=== PATIENT | male | born 2000 | race Caucasian/White ===

== ENCOUNTER 2020-10-08 22:12 | Inpatient (IN) | payer BC ==
--- NOTE | 2020-10-08 23:04 | EDM.PDOCBH ---
ED HPI GENERAL MEDICAL PROBLEM - General Chief Complaint: Behavioral/Psych Stated Complaint: OPIOID WITHDRAWAL Time Seen by Provider: 10/08/20 23:04 Source of Information: Reports: Patient History Limitations: Reports: No Limitations - History of Present Illness INITIAL COMMENTS - FREE TEXT/NARRATIVE: 20-year-old male presents to the ED in accompaniment of his father. Apparently he has been living in the [place] area and came home within the last few days. He indicates that he has been using heroin by way of smoking it. He has a opioid addiction and has been taking Suboxone tablets daily for the last 2 months. He states he has been rationing his medication to a half a tablet daily since he knew he was going to have difficulty finding another doctor to prescribe it. Father reports that he did eat dinner today. He appears to have kept it down. He is shaking like a leaf at present and opening and closing his eyes with some nystagmus. He appears restless and agitated. He will not answer me as far as diarrhea or vomiting goes. He will not answer me as far as abdominal cramping pain. Father reports that he is hallucinating and will walk out into a room and be completely unaware of his surroundings. He is fearful that he would actually leave the home and walk out into traffic. He states that he is only taking opioids but I have suspicion that he is taking other hallucinogenic's such as methamphetamines which she denies. He states he last used heroin by way of smoking it 2 days ago. He apparently uses alcohol on a as needed basis and marijuana. Onset: Gradual Onset Date: 10/06/20 Duration: Day(s):, Constant, Getting Worse, Waxing/Waning Location: Reports: Generalized (Feeling of anxiety with restlessness and agitation. Appears to be hallucinating primarily visually clinically.) Quality: Reports: Other (Hallucinations) Severity: Moderate Improves with: Reports: None Worsens with: Reports: None Context: Denies: Activity, Exercise, Lifting, Sick Contact, Trauma, Other Associated Symptoms: Reports: Confusion, Cough, Loss of Appetite, Malaise, Nausea/Vomiting (Nausea with no reported vomiting), Rash (Evidence of self picking on his face.), Weakness. Denies: Chest Pain, cough w sputum, Diaphoresis, Fever/Chills, Headaches, Seizure, Shortness of Breath, Syncope Treatments [employer] PROFESSION[employer]: Reports: Other (see below) (Box on half tablet taken today.) - Related Data Allergies Allergy/AdvReac Type Severity Reaction Status Date / Time No Known Allergies Allergy Verified 10/08/20 22:47 Home Meds: Home Meds ondansetron HCL [Zofran] 4 mg PO TID PRN #15 tablet 11/26/17 [Rx] Past Medical History Psychiatric History: Reports: Addiction (Primarily to opioids) - Infectious Disease History Infectious Disease History: Reports: None Social & Family History - Tobacco Use Tobacco Use Status *Q: Current Every Day Tobacco User Years of Tobacco use: 5 Packs/Tins Daily: 1 - Caffeine Use Caffeine Use: Reports: None - Recreational Drug Use Recreational Drug Use: Yes Recreational Drug Type: Reports: Heroin Recreational Drug Use Frequency: Daily - Living Situation & Occupation Living situation: Reports: Single Occupation: Unemployed (Came home from the [facility] a few days ago to [place] to his parents home. It is unclear if he is homeless or not.) ED ROS GENERAL - Review of Systems Review Of Systems: See Below Constitutional: Reports: Chills, Malaise, Weakness, Fatigue, Weight Loss. Denies: Fever HEENT: Reports: No Symptoms Respiratory: Reports: Cough (Intermittent cough from smoking cigarettes.). Denies: Shortness of Breath, Wheezing, Pleuritic Chest Pain Cardiovascular: Denies: Chest Pain, Blood Pressure Problem, Claudication, Dyspnea on Exertion, Edema, Lightheadedness, Orthopnea Endocrine: Reports: Fatigue GI/Abdominal: Reports: Abdominal Pain, Decreased Appetite, Nausea. Denies: Constipation, Diarrhea, Stool Incontinence, Vomiting : Reports: No Symptoms Musculoskeletal: Reports: No Symptoms Skin: Reports: Rash (Evidence of self picking), Other ( or neurodermatitis.) Neurological: Reports: Confusion, Headache Psychiatric: Reports: Anxiety, Confusion, Hallucinations, Other (Agitation). Denies: Depression, Suicidal Ideation Hematologic/Lymphatic: Reports: No Symptoms Immunologic: Reports: No Symptoms ED EXAM, BEHAVIORAL HEALTH - Physical Exam Exam: See Below Exam Limited By: Altered Mental Status (Patient is confused and obviously hallucinating primarily auditory. He will get about every third question that you ask of him and try and reply.) General Appearance: Anxious, Moderate Distress (Agitated), Cachetic, Other (Temperature is 36.3. Heart rate 97 is sinus respiratory is 13 with O2 sats 100% room air. BP 1 3683) Eye Exam: Bilateral Eye: Normal Inspection, PERRL, Other (Repetitive blinking of his eyelids) Throat/Mouth: Normal Lips, Normal Oropharynx, Other (Is mildly dry and coated). No: Normal Teeth Head: Atraumatic, Normocephalic Neck: Normal Inspection, Supple, Non-Tender, Full Range of Motion. No: Lymphadenopathy (L), Lymphadenopathy (R) Respiratory/Chest: No Respiratory Distress, Lungs Clear, Normal Breath Sounds, No Accessory Muscle Use. No: Rales, Rhonchi, Wheezing Cardiovascular: Normal Peripheral Pulses, Regular Rate, Rhythm, No Edema, No Gallop, No Murmur, No Rub, Other (No injuries to his extremities identified. No track antoine) GI/Abdominal: Normal Bowel Sounds, Soft, Non-Tender, No Organomegaly, No Distention, Other (Avoid abdomen.) Back Exam: Normal Inspection, Full Range of Motion. No: CVA Tenderness (L), CVA Tenderness (R) Extremities: Normal Inspection, Normal Range of Motion, Non-Tender, No Pedal Edema Neurological: Alert, CN II-XII Intact, No Motor/Sensory Deficits, Disoriented to Time, Inattentive, Slow Response to Commands (Remittent response to commands I think in between auditory hallucinations), Other (He was not able to perform any neurological exam as he cannot obey all commands.). No: Normal Cognition, Oriented x 3 (Oriented to time), Dysarthria Psychiatric: Restless, Agitated, Inattentive, Auditory Hallucinations (Fact.) Skin Exam: Warm, Dry, Intact, Normal color, Other Endotracheal Intubation - Endotracheal Intubation Time of Intubation: 00:50 ET Intubation Indication: Airway Protection, Other (Extreme uncontrolled behavior) Preparation: Suction, Balloon Tested, BVM Set Up, Difficult Airway Equip Airway Assessment: Other (Normal airway) Pre-Oxygenation: Assisted with BVM, 100% FiO2 Anesthesia Meds: Etomidate, Propofol (90 mg), Succinylcholine (90 mg) Placement: Orotracheal Cords Visualized: Yes Number of Attempts: 1 Confirmed By: CO2 Indicator, Bilateral Breath Sounds, Chest Xray Tube Secured By: By RT #1 Interpretation EKG Date: 10/08/20 Time: 23:24 Rhythm: NSR Rate (Beats/Min): 80 Speer: Normal P-Wave: Present QRS: Other (RSR prime wave V1 V2 consider normal variant. Left ventricular hypertrophy pattern normal for age.) ST-T: Normal QT: Normal EKG Interpretation Comments: Essential normal ECG for age. COURSE, BEHAVIORAL HEALTH COMP - Course Vital Signs: Last Vital Signs Temp 36.8 C 10/11/20 04:00 Pulse 64 10/10/20 09:46 Resp 14 10/11/20 04:00 BP 121/65 10/11/20 04:00 Pulse Ox 99 10/11/20 04:00 Orders, Labs, Meds: Medication Orders Acetaminophen (Acetaminophen 650 Mg Supp) 650 mg RECTAL Q4H PRN PRN Reason: Pain (mild 1-3) Benzocaine/Menthol (Benzocaine/Cetylpyridinium/Menthol Lozenge) 1 lozenge MUCMEM QID PRN PRN Reason: Sore Throat Last Admin: 10/10/20 11:48 Dose: 1 lozenge Documented by: NIDA Enoxaparin Sodium (Enoxaparin 40 Mg/0.4 Ml Syringe) 40 mg SUBCUT Q24H [facility] Last Admin: 10/10/20 12:48 Dose: 40 mg Documented by: Admin: 10/09/20 14:20 Dose: 40 mg Documented by: CARLOS Lorazepam (Lorazepam 2 Mg/Ml Sdv) 1 - 2 mg IVPUSH Q1H PRN; Protocol PRN Reason: Withdrawal Symptoms Last Admin: 10/10/20 22:28 Dose: 2 mg Documented by: JALIL Lorazepam (Lorazepam 1 Mg Tab) 1 - 2 mg PO Q1H PRN; Protocol PRN Reason: Withdrawal Symptoms Last Admin: 10/11/20 01:07 Dose: 1 mg Documented by: JALIL Nicotine Polacrilex (Nicotine Polacrilex 2 Mg Gum) 2 mg CHEW Q2H PRN PRN Reason: Withdrawal Symptoms Last Admin: 10/11/20 02:38 Dose: 2 mg Documented by: Admin: 10/10/20 16:43 Dose: 2 mg Documented by: NIDA Pantoprazole Sodium (Pantoprazole 40 Mg Vial) 40 mg IVPUSH DAILY [facility] Last Admin: 10/10/20 08:06 Dose: 40 mg Documented by: NIDA Laboratory Tests 10/08/20 10/08/20 10/08/20 Range/Units 23:34 23:34 23:34 WBC 10.68 H (4.23-9.07) K/mm3 RBC 5.39 (4.63-6.08) M/mm3 Hgb 15.9 (13.7-17.5) gm/dl Hct 43.8 (40.1-51.0) % MCV 81.3 D (79.0-92.2) fl MCH 29.5 (25.7-32.2) pg MCHC 36.3 H (32.2-35.5) g/dl RDW Std Deviation 36.7 (35.1-43.9) fL Plt Count 443 H D (163-337) K/mm3 MPV 9.4 (9.4-12.3) fl Neut % (Auto) 81.7 H (34.0-67.9) % Lymph % (Auto) 12.6 L (21.8-53.1) % [place] % (Auto) 5.1 L (5.3-12.2) % Eos % (Auto) 0.3 L (0.8-7.0) Baso % (Auto) 0.2 (0.1-1.2) % Neut # (Auto) 8.73 H (1.78-5.38) K/mm3 Lymph # (Auto) 1.35 (1.32-3.57) K/mm3 [place] # (Auto) 0.54 (0.30-0.82) K/mm3 Eos # (Auto) 0.03 L (0.04-0.54) K/mm3 Baso # (Auto) 0.02 (0.01-0.08) K/mm3 Puncture Site ABG pH (7.35-7.45) ABG pCO2 (35.0-45.0) mmHg ABG pO2 (80.0-100.0) mmHg ABG HCO3 (22.0-26.0) meq/L ABG O2 Saturation (96.0-97.0) % ABG Base Excess (-2-2.0) A-a Gradient mmHg O2 Delivery Device FiO2 (21.00-100.00) % Tidal Volume cc PEEP cmH20 Sodium 144 (136-145) mEq/L Potassium 3.5 (3.5-5.1) mEq/L Chloride 105 (98-107) mEq/L Carbon Dioxide 24 (21-32) mEq/L Anion Gap 18.5 H (5-15) BUN 13 (7-18) mg/dL Creatinine 0.9 (0.7-1.3) mg/dL Est Cr Clr Drug Dosing 106.55 mL/min Estimated GFR (MDRD) > 60 (>60) mL/min BUN/Creatinine Ratio 14.4 (14-18) Glucose 140 H (70-99) mg/dL Calcium 9.3 (8.5-10.1) mg/dL Magnesium 2.3 (1.8-2.4) mg/dL Total Bilirubin 0.5 (0.2-1.0) mg/dL AST 21 (15-37) U/L ALT 19 (16-63) U/L Alkaline Phosphatase 100 (46-116) U/L Troponin I < 0.017 (0.00-0.056) ng/mL C-Reactive Protein <0.2 (<1.0) mg/dL Total Protein 7.6 (6.4-8.2) g/dl Albumin 4.7 (3.4-5.0) g/dl Globulin 2.9 gm/dL Albumin/Globulin Ratio 1.6 (1-2) Urine Color (Yellow) Urine Appearance (Clear) Urine pH (5.0-8.0) Ur Specific [place] (1.005-1.030) Urine Protein (Negative) Urine Glucose (UA) (Negative) Urine Ketones (Negative) Urine Occult Blood (Negative) Urine Nitrite (Negative) Urine Bilirubin (Negative) Urine Urobilinogen (0.2-1.0) Ur Leukocyte Esterase (Negative) Urine RBC (0-5) /hpf Urine WBC (0-5) /hpf Ur Squamous Epith Cells (0-5) /hpf Amorphous Sediment (NOT SEEN) /hpf Urine Bacteria (FEW) /hpf Urine Mucus (FEW) /hpf Salicylates (2.8-20) mg/dL Urine Opiates Screen (LGCBWM=707) Ur Buprenorphine Scrn (CUTOFF=10) Ur Oxycodone Screen (JLY1QS=512) Urine Methadone Screen (WRZ1EL=313) Ur Propoxyphene Screen (LZIMWW=212) Acetaminophen (10-30) ug/mL Ur Barbiturates Screen (TEEKDW=060) Ur Tricyclics Screen (AYNDLJ=429) Ur Phencyclidine Scrn (CUTOFF=25) Ur Amphetamine Screen (LXVUUV=331) U Methamphetamines Scrn (BZODRU=466) U Benzodiazepines Scrn (IDGBTQ=382) U Cocaine Metab Screen (TICYEF=526) U Marijuana (THC) Screen (CUTOFF=50) Ethyl Alcohol (0.00) gm% Hepatitis C Antibody Negative (NEGATIVE) HIV-1 Ab Rapid Screen Negative (NEGATIVE) SARS-CoV-2 RNA (RENETTA) (NEGATIVE) 10/08/20 10/08/20 10/08/20 Range/Units 23:34 23:34 23:48 WBC (4.23-9.07) K/mm3 RBC (4.63-6.08) M/mm3 Hgb (13.7-17.5) gm/dl Hct (40.1-51.0) % MCV (79.0-92.2) fl MCH (25.7-32.2) pg MCHC (32.2-35.5) g/dl RDW Std Deviation (35.1-43.9) fL Plt Count (163-337) K/mm3 MPV (9.4-12.3) fl Neut % (Auto) (34.0-67.9) % Lymph % (Auto) (21.8-53.1) % [place] % (Auto) (5.3-12.2) % Eos % (Auto) (0.8-7.0) Baso % (Auto) (0.1-1.2) % Neut # (Auto) (1.78-5.38) K/mm3 Lymph # (Auto) (1.32-3.57) K/mm3 [place] # (Auto) (0.30-0.82) K/mm3 Eos # (Auto) (0.04-0.54) K/mm3 Baso # (Auto) (0.01-0.08) K/mm3 Puncture Site ABG pH (7.35-7.45) ABG pCO2 (35.0-45.0) mmHg ABG pO2 (80.0-100.0) mmHg ABG HCO3 (22.0-26.0) meq/L ABG O2 Saturation (96.0-97.0) % ABG Base Excess (-2-2.0) A-a Gradient mmHg O2 Delivery Device FiO2 (21.00-100.00) % Tidal Volume cc PEEP cmH20 Sodium (136-145) mEq/L Potassium (3.5-5.1) mEq/L Chloride (98-107) mEq/L Carbon Dioxide (21-32) mEq/L Anion Gap (5-15) BUN (7-18) mg/dL Creatinine (0.7-1.3) mg/dL Est Cr Clr Drug Dosing mL/min Estimated GFR (MDRD) (>60) mL/min BUN/Creatinine Ratio (14-18) Glucose (70-99) mg/dL Calcium (8.5-10.1) mg/dL Magnesium (1.8-2.4) mg/dL Total Bilirubin (0.2-1.0) mg/dL AST (15-37) U/L ALT (16-63) U/L Alkaline Phosphatase (46-116) U/L Troponin I (0.00-0.056) ng/mL C-Reactive Protein (<1.0) mg/dL Total Protein (6.4-8.2) g/dl Albumin (3.4-5.0) g/dl Globulin gm/dL Albumin/Globulin Ratio (1-2) Urine Color Yellow (Yellow) Urine Appearance Clear (Clear) Urine pH 7.5 (5.0-8.0) Ur Specific [place] 1.020 (1.005-1.030) Urine Protein Trace H (Negative) Urine Glucose (UA) Negative (Negative) Urine Ketones 2+ H (Negative) Urine Occult Blood Negative (Negative) Urine Nitrite Negative (Negative) Urine Bilirubin Negative (Negative) Urine Urobilinogen 1.0 (0.2-1.0) Ur Leukocyte Esterase Negative (Negative) Urine RBC Not seen (0-5) /hpf Urine WBC Not seen (0-5) /hpf Ur Squamous Epith Cells 0-5 (0-5) /hpf Amorphous Sediment Moderate H (NOT SEEN) /hpf Urine Bacteria Rare (FEW) /hpf Urine Mucus Rare (FEW) /hpf Salicylates 1.1 L (2.8-20) mg/dL Urine Opiates Screen (SUYAUP=511) Ur Buprenorphine Scrn (CUTOFF=10) Ur Oxycodone Screen (GYU5JR=398) Urine Methadone Screen (WTT3TF=655) Ur Propoxyphene Screen (TUXERZ=755) Acetaminophen 0 L (10-30) ug/mL Ur Barbiturates Screen (IUSNIE=830) Ur Tricyclics Screen (OTIQUK=912) Ur Phencyclidine Scrn (CUTOFF=25) Ur Amphetamine Screen (QNTZTU=279) U Methamphetamines Scrn (VIDRRF=507) U Benzodiazepines Scrn (KGVRMP=696) U Cocaine Metab Screen (UKLDAM=796) U Marijuana (THC) Screen (CUTOFF=50) Ethyl Alcohol 0.00 (0.00) gm% Hepatitis C Antibody (NEGATIVE) HIV-1 Ab Rapid Screen (NEGATIVE) SARS-CoV-2 RNA (RENETTA) (NEGATIVE) 10/08/20 10/09/20 10/09/20 Range/Units 23:48 02:19 08:52 WBC (4.23-9.07) K/mm3 RBC (4.63-6.08) M/mm3 Hgb (13.7-17.5) gm/dl Hct (40.1-51.0) % MCV (79.0-92.2) fl MCH (25.7-32.2) pg MCHC (32.2-35.5) g/dl RDW Std Deviation (35.1-43.9) fL Plt Count (163-337) K/mm3 MPV (9.4-12.3) fl Neut % (Auto) (34.0-67.9) % Lymph % (Auto) (21.8-53.1) % [place] % (Auto) (5.3-12.2) % Eos % (Auto) (0.8-7.0) Baso % (Auto) (0.1-1.2) % Neut # (Auto) (1.78-5.38) K/mm3 Lymph # (Auto) (1.32-3.57) K/mm3 [place] # (Auto) (0.30-0.82) K/mm3 Eos # (Auto) (0.04-0.54) K/mm3 Baso # (Auto) (0.01-0.08) K/mm3 Puncture Site Rt radial ABG pH 7.33 L (7.35-7.45) ABG pCO2 48.4 H (35.0-45.0) mmHg ABG pO2 141.0 H (80.0-100.0) mmHg ABG HCO3 25.0 (22.0-26.0) meq/L ABG O2 Saturation 98.9 H (96.0-97.0) % ABG Base Excess -0.8 (-2-2.0) A-a Gradient 12 mmHg O2 Delivery Device Ventilator FiO2 30.00 (21.00-100.00) % Tidal Volume 400.0 cc PEEP 5.0 cmH20 Sodium (136-145) mEq/L Potassium (3.5-5.1) mEq/L Chloride (98-107) mEq/L Carbon Dioxide (21-32) mEq/L Anion Gap (5-15) BUN (7-18) mg/dL Creatinine (0.7-1.3) mg/dL Est Cr Clr Drug Dosing mL/min Estimated GFR (MDRD) (>60) mL/min BUN/Creatinine Ratio (14-18) Glucose (70-99) mg/dL Calcium (8.5-10.1) mg/dL Magnesium (1.8-2.4) mg/dL Total Bilirubin (0.2-1.0) mg/dL AST (15-37) U/L ALT (16-63) U/L Alkaline Phosphatase (46-116) U/L Troponin I (0.00-0.056) ng/mL C-Reactive Protein (<1.0) mg/dL Total Protein (6.4-8.2) g/dl Albumin (3.4-5.0) g/dl Globulin gm/dL Albumin/Globulin Ratio (1-2) Urine Color (Yellow) Urine Appearance (Clear) Urine pH (5.0-8.0) Ur Specific [place] (1.005-1.030) Urine Protein (Negative) Urine Glucose (UA) (Negative) Urine Ketones (Negative) Urine Occult Blood (Negative) Urine Nitrite (Negative) Urine Bilirubin (Negative) Urine Urobilinogen (0.2-1.0) Ur Leukocyte Esterase (Negative) Urine RBC (0-5) /hpf Urine WBC (0-5) /hpf Ur Squamous Epith Cells (0-5) /hpf Amorphous Sediment (NOT SEEN) /hpf Urine Bacteria (FEW) /hpf Urine Mucus (FEW) /hpf Salicylates (2.8-20) mg/dL Urine Opiates Screen Presumptive positive H (YRDHDQ=847) Ur Buprenorphine Scrn Presumptive positive (CUTOFF=10) Ur Oxycodone Screen Negative (LZE7HW=277) Urine Methadone Screen Negative (HIT1ED=977) Ur Propoxyphene Screen Negative (XOAAKT=966) Acetaminophen (10-30) ug/mL Ur Barbiturates Screen Negative (QSVKDE=193) Ur Tricyclics Screen Negative (QOOKZK=908) Ur Phencyclidine Scrn Negative (CUTOFF=25) Ur Amphetamine Screen Negative (XOLEIY=179) U Methamphetamines Scrn Negative (TOCRCT=438) U Benzodiazepines Scrn Negative (NRFWZY=186) U Cocaine Metab Screen Negative (RSXVRF=446) U Marijuana (THC) Screen Presumptive positive H (CUTOFF=50) Ethyl Alcohol (0.00) gm% Hepatitis C Antibody (NEGATIVE) HIV-1 Ab Rapid Screen (NEGATIVE) SARS-CoV-2 RNA (RENETTA) Negative (NEGATIVE) Medications Generic Name Dose Route Start Last Admin Trade Name Freq PRN Reason Stop Dose Admin Acetaminophen 650 mg 10/09/20 12:01 Acetaminophen 650 Mg Supp RECTAL Q4H PRN Pain (mild 1-3) Benzocaine/Menthol 1 lozenge 10/10/20 11:39 10/10/20 11:48 Benzocaine/Cetylpyridinium/Menthol Lozenge MUCMEM 1 lozenge QID PRN Administration Sore Throat Enoxaparin Sodium 40 mg 10/09/20 13:00 10/10/20 12:48 Enoxaparin 40 Mg/0.4 Ml Syringe SUBCUT 40 mg Q24H FACUNDO Administration Lorazepam 1 - 2 mg 10/10/20 22:14 10/10/20 22:28 Lorazepam 2 Mg/Ml Sdv IVPUSH 2 mg Q1H PRN Administration Withdrawal Symptoms Protocol Lorazepam 1 - 2 mg 10/10/20 22:14 10/11/20 01:07 Lorazepam 1 Mg Tab PO 1 mg Q1H PRN Administration Withdrawal Symptoms Protocol Nicotine Polacrilex 2 mg 10/10/20 16:27 10/11/20 02:38 Nicotine Polacrilex 2 Mg Gum CHEW 2 mg Q2H PRN Administration Withdrawal Symptoms Pantoprazole Sodium 40 mg 10/10/20 09:00 10/10/20 08:06 Pantoprazole 40 Mg Vial IVPUSH 40 mg DAILY FACUNDO Administration Discontinued Medications Generic Name Dose Route Start Last Admin Trade Name Rachel PRN Reason Stop Dose Admin Clonidine HCl 0.1 mg 10/08/20 23:15 10/08/20 23:36 Clonidine 0.1 Mg Tab PO 10/08/20 23:16 0.1 mg ONETIME ONE Administration Etomidate 20 mg 10/09/20 00:48 10/09/20 00:55 Etomidate 2 Mg/Ml 20 Ml Sdv IVPUSH 10/09/20 00:49 20 mg ONETIME ONE Administration Haloperidol Lactate 2.5 mg 10/09/20 00:25 10/09/20 00:27 Haloperidol Lactate 5 Mg/Ml Sdv IVPUSH 10/09/20 00:26 2.5 mg ONETIME ONE Administration Haloperidol Lactate Confirm 10/09/20 00:27 10/09/20 02:35 Haloperidol Lactate 5 Mg/Ml Sdv Administered 10/09/20 00:28 Not Given Dose 5 mg .ROUTE .STK-MED ONE Haloperidol Lactate 5 mg 10/09/20 00:38 10/09/20 00:40 Haloperidol Lactate 5 Mg/Ml Sdv IVPUSH 10/09/20 00:39 5 mg ONETIME ONE Administration Dextrose/Lactated Ringer's 1,000 mls @ 999 mls/hr 10/08/20 23:15 10/08/20 23:34 Dextrose 5%-Lactated Ringers IV 999 mls/hr ASDIRECTED FACUNDO Administration Promethazine HCl 25 mg/ Sodium 51 mls @ 100 mls/hr 10/08/20 23:15 10/08/20 23:34 Chloride IV 10/08/20 23:45 100 mls/hr ONETIME ONE Administration Propofol 100 mls @ 1.755 mls/hr 10/09/20 01:00 10/10/20 09:54 Diprivan 100 Ml IV 0 mcg/kg/min TITRATE FACUNDO 0 mls/hr Titration Protocol 5 MCG/KG/MIN Sodium Chloride 1,000 mls @ 150 mls/hr 10/09/20 03:15 10/10/20 05:14 Normal Saline IV 150 mls/hr ASDIRECTED FACUNDO Administration Fentanyl 2,500 mcg/ Sodium 250 mls @ 87.77 mls/hr 10/09/20 03:30 10/09/20 15:08 Chloride IV 0 mcg/kg/hr TITRATE FACUNDO 0 mls/hr Titration Protocol 15 MCG/KG/HR dexmedeTOMIDine in dextrose 5% 100 mls @ 5.851 mls/hr 10/09/20 11:45 10/10/20 09:55 400 mcg/ Premix IV 0 mcg/kg/hr TITRATE FACUNDO 0 mls/hr Titration Protocol 0.4 MCG/KG/HR Dextrose/Sodium Chloride 1,000 mls @ 75 mls/hr 10/10/20 08:00 10/10/20 07:59 Dextrose 5%-Normal Saline IV 75 mls/hr ASDIRECTED FACUNDO Administration Lorazepam 1 mg 10/08/20 23:15 10/08/20 23:36 Lorazepam 2 Mg/Ml Sdv IVPUSH 10/08/20 23:16 1 mg ONETIME ONE Administration Lorazepam 1 mg 10/09/20 00:10 10/09/20 00:16 Lorazepam 2 Mg/Ml Sdv IVPUSH 10/09/20 00:11 1 mg ONETIME ONE Administration Lorazepam Confirm 10/09/20 00:33 10/09/20 02:35 Lorazepam 2 Mg/Ml Sdv Administered 10/09/20 00:34 Not Given Dose 2 mg .ROUTE .STK-MED ONE Lorazepam 2 mg 10/10/20 18:41 10/10/20 18:48 Lorazepam 2 Mg/Ml Sdv IVPUSH 10/10/20 18:42 2 mg ONETIME ONE Administration Lorazepam 2 mg 10/10/20 19:07 10/10/20 21:15 Lorazepam 2 Mg/Ml Sdv IVPUSH 2 mg Q1H PRN Administration Withdrawal Symptoms Protocol Lorazepam 1 mg 10/10/20 19:09 Lorazepam 1 Mg Tab PO Q1H PRN Withdrawal Symptoms Protocol Midazolam HCl 4 mg 10/09/20 02:14 10/09/20 03:14 Midazolam 5 Mg/Ml 10 Ml Mdv IV 10/09/20 02:15 Not Given ONETIME ONE Midazolam HCl Confirm 10/09/20 02:16 10/09/20 02:36 Midazolam 1 Mg/Ml 2 Ml Sdv Administered 10/09/20 02:17 Not Given Dose 4 mg .ROUTE .STK-MED ONE Midazolam HCl 4 mg 10/09/20 03:12 10/09/20 02:15 Midazolam 1 Mg/Ml 2 Ml Sdv IVPUSH 10/09/20 03:13 4 mg ONETIME ONE Administration Ondansetron HCl 4 mg 10/10/20 04:35 10/10/20 04:47 Ondansetron 4 Mg/2 Ml Sdv IVPUSH 10/10/20 04:36 4 mg ONETIME ONE Administration Propofol 90 mg 10/09/20 00:49 10/09/20 01:00 Propofol 200 Mg/20 Ml Sdv IVPUSH 10/09/20 00:50 90 mg ONETIME ONE Administration Rocuronium Nutrioso 35 mg 10/09/20 01:12 10/09/20 01:13 Rocuronium 50 Mg/5 Ml Vial 0.6 mg/kg (35 mg) 10/09/20 01:13 35 mg IVPUSH Administration NOW ONE Rocuronium Nutrioso Confirm 10/09/20 01:13 10/09/20 02:37 Rocuronium 50 Mg/5 Ml Vial Administered 10/09/20 01:14 Not Given Dose 50 mg .ROUTE .STK-MED ONE Rocuronium Nutrioso 35 mg 10/09/20 03:13 10/09/20 03:10 Rocuronium 50 Mg/5 Ml Vial IVPUSH 10/09/20 03:14 35 mg ONETIME ONE Administration Succinylcholine Chloride 90 mg 10/09/20 00:48 10/09/20 00:51 Succinylcholine 200 Mg/10 Ml Mdv IV 10/09/20 00:49 90 mg ONETIME ONE Administration Vecuronium Nutrioso 6 mg 10/09/20 01:40 10/09/20 01:40 Vecuronium 10 Mg Vial 0.1 mg/kg (6 mg) 10/09/20 01:41 6 mg IVPUSH Administration ONETIME ONE Vecuronium Nutrioso Confirm 10/09/20 01:41 10/09/20 02:35 Vecuronium 10 Mg Vial Administered 10/09/20 01:42 Not Given Dose 10 mg .ROUTE .STK-MED ONE Ziprasidone 20 mg 10/10/20 12:21 10/10/20 12:47 Ziprasidone Hcl 20 Mg Cap PO 10/10/20 12:22 20 mg NOW STA Administration Re-Assessment/Re-Exam: 20-year-old male presents to the ED in the accompaniment of his father. The history suggest that he has been using heroin by way of smoking for an unknown length of time. He came home from the [facility] where apparently he has been staying for the last several weeks and months. He has a history of recurrent chronic opioid addiction. He is supposed to be on Suboxone and apparently has been on it for 2 months but he has been rationing his medication as he knew he was going to have have difficulty finding a physician to prescribe it here. He is been taking half a tablet daily. Apparently did eat some dinner today without any noted vomiting or diarrhea. Father appreciates that he is experiencing hallucinations primarily auditory and perhaps visual as he will walk around the room and can stare around completely unaware of where he is and is obviously confused. Apparently last use of heroin by way of smoking was 48 hours ago. He denies any other street drug use but does use alcohol intermittently. He is quite agitated and restless on examination without fever. I can see no track antoine on his arms. He has some areas of self picking on his face and upper chest and arms suggestive of methamphetamine use which he denies. Plan a urine drug screen will be obtained when available. He will be started on IV D5 normal saline at open. Given Phenergan 25 mg IV with Ativan 1 mg IV for nausea and sedation. He will also be given Compazine 0.1 mg by mouth. He will be monitored in the ED overnight and see how he does. Re-Assessment/Re-Exam Date: 10/09/20 (White Count is 10.68. The differential shows 81.7% neutrophils. Hemoglobin is 15.9 with hematocrit of 43.8. MCV is 81.3. Platelet count 443,000 slightly elevated. Urinalysis shows trace of protein 2+ ketones negative leukocyte esterase and moderate amount of amorphous sediment. It is presumptively positive for opiates and marijuana. Also presumptively positive for buprenorphine which he is taking in the form of Suboxone. Patient is still agitated and jittery. He was talking to the wall short time ago. We will repeat Ativan 1 mg IV) Re-Assessment/Re-Exam Time: 00:27 (Is remaining quite agitated. He is restless and appears that he is going to crawl over the side rails. We will give him Haldol 2.5 mg IV for sedation.) Medical Clearance: 10/09/20 00:40 patient is continuing to be very agitated difficult to keep on the bed. This is in spite of to further milligrams of Ativan IV. We will give Haldol 5 mg IV at this time. 10/09/20 01:05 patient's condition became uncontrollable. It took 6 of us to keep him on the gurney and we had to call the police. Even two police officers with us attending had difficulty keeping him in leather restraints and on the bed. Patient is actively hallucinating from unknown hallucinogenic. I am suspicious it may be tramadol. To gain control of the patient's activity he required a bit sequence intubation using succinylcholine 90 mg IV with etomidate 30 mg IV. Propofol 1.5 mg will be given per kilogram as a bolus dose and then he will be started on propofol at 0.5 mg/kg/h to maintain sedation. 7-1/2 ET tube placed at 23 cm corner of the right lip. Position will be checked with chest x-ray. He will be placed on vent at 12 breaths/min with an FiO2 of 30% and PEEP of 5. Tidal volume will be 400 mils. 10/09/20 01:41 she is arousing moving all limbs. Propofol drip is running at 25 mg/h. We will give him vecuronium 0.1 mg/kg which will be 6 mg IV bolus. 10/09/20 03:36 and is still very fidgety and the paralytics are not lasting near as long as they should. We have changed IV sites to make sure that they are working appropriately. I am therefore going to start him on a fentanyl drip starting at 15 mcg/h. Addition of the propofol in the hopes of not lowering his blood pressure too much . Alternatively we could use Versed or Ativan drip. 10/09/20 05:29 Patient appears to have stabilized. He is no longer twitching and appears to be appropriately sedated. His blood pressure is 116/74 with O2 sats of 100% on the ventilator. Heart rate is 98 and sinus. He is currently on 30 mcg of fentanyl per hour and he is on 40 mg of propofol per hour. 10/09/20 06:26 and ventilator settings are FiO2 of 30%. Respiratory rate of 12 ,PEEP of 5 and tidal volume of 400 mils. Current blood pressure is 116/77 with O2 sats of 100% and PCO2 of 48. Heart rate is 88 and sinus. Currently on propofol drip at 40 mg/h and fentanyl drip at 30 mcg/h which is provided satisfactory sedation for the last 3 hours. It is unclear what medications he is taken to have caused such violent outburst with combination of visual and auditory hallucinations. I strongly suspect it may be tramadol as I have seen this before. There is certainly no evidence that he is going through acute opioid withdrawal for the above symptoms that he exhibited. Care will be turned over to Dr. Saleh and at change of shift. At present there is no open ICU beds at I said [facility] in [place] as they had to patients waiting in the ER to be admitted to their intensive care unit when I discussed the case at 0400 hrs. this morning. I would anticipate that this patient could be attempted to come off the vent between 16 and 1800 hrs. tonight allowing current drugs in his system to hopefully be metabolized. There will be 2 ICU beds in our hospital this morning but it is unclear whether the new provider or hospitalist will look after patients on a ventilator. Departure - Departure Time of Disposition: 11:00 Disposition: Admitted As Inpatient 64 Condition: Serious Clinical Impression: Acute and transient psychotic disorder, Drug addiction, Acute hyperactive opioid withdrawal delirium - Discharge Information *PRESCRIPTION DRUG MONITORING PROGRAM REVIEWED*: Not Applicable *COPY OF PRESCRIPTION DRUG MONITORING REPORT IN PATIENT SARTHAK: Not Applicable Critical Care Note - Critical Care Note Total Time (mins): 366 Sepsis Event Note (ED) - Evaluation Sepsis Screening Result: No Definite Risk
[2020-10-08] MEDS ORDERED: LORazepam 2 MG/ML SDV IVPUSH ONE (23:15)
[2020-10-08] MEDS ORDERED: Promethazine 25 MG in Sodium Chloride 0.9% 50 ML IV ONE (23:15)
[2020-10-08] MEDS ORDERED: cloNIDine 0.1 MG Tab PO ONE (23:15)
[2020-10-08] MEDS ORDERED: Dextrose 5%-Lactated Ringers 1,000 ML IV SCH (23:15)
[2020-10-09] MEDS ORDERED: LORazepam 2 MG/ML SDV IVPUSH ONE (00:10)
[2020-10-09] MEDS ORDERED: Haloperidol Lactate 5 MG/ML SDV IVPUSH ONE ×2 (00:25→00:38)
[2020-10-09] MEDS ORDERED: Haloperidol Lactate 5 MG/ML SDV ONE (00:27)
[2020-10-09] MEDS ORDERED: LORazepam 2 MG/ML SDV ONE (00:33)
[2020-10-09] MEDS ORDERED: Etomidate 2 MG/ML 20 ML SDV IVPUSH ONE (00:48)
[2020-10-09] MEDS ORDERED: Succinylcholine 200 MG/10 ML MDV IV ONE (00:48)
[2020-10-09] MEDS ORDERED: Propofol 200 MG/20 ML SDV IVPUSH ONE (00:49)
[2020-10-09] MEDS: Sodium Chloride 0.9% 1,000 ML IV SCH ×3 (01:00→22:36)
[2020-10-09] MEDS: propofoL 100 ML IV SCH ×4 (01:05→17:52)
[2020-10-09] MEDS ORDERED: Rocuronium 50 MG/5 ML Vial IVPUSH ONE ×2 (01:12→03:13)
[2020-10-09] MEDS ORDERED: Rocuronium 50 MG/5 ML Vial ONE (01:13)
[2020-10-09] MEDS ORDERED: Midazolam 5 MG/ML 10 ML MDV IV ONE (02:14)
[2020-10-09] MEDS ORDERED: Midazolam 1 MG/ML 2 ML SDV ONE (02:16)
[2020-10-09] MEDS ORDERED: Midazolam 1 MG/ML 2 ML SDV IVPUSH ONE (03:12)
[2020-10-09] MEDS: fentaNYL 2,500 MCG in Sodium Chloride 0.9% 200 ML IV SCH ×7 (03:31→13:39)
--- NOTE | 2020-10-09 06:58 | CR ---
Chest: Supine view of the chest was obtained. Comparison: No prior chest imaging is available. Endotracheal tube is seen which lies at the upper level of the clavicles. Nasogastric tube is seen with tip lying within the stomach. Heart size and mediastinum are normal. Lungs are clear with no acute parenchymal change. Bony structures show nothing acute. Impression: 1. Tip of endotracheal tube at the upper levels of the clavicles. 2. Tip of nasogastric tube within the stomach. 3. No additional abnormality is seen on supine chest x-ray. Diagnostic code #3
--- NOTE | 2020-10-09 11:41 | PCM.HP.2 ---
H&P History of Present Illness - General Date of Service: 10/09/20 Admit Problem/Dx: Admission Diagnosis/Problem Admission Diagnosis/Problem Withdrawal complaint polysubstance withdrawal Source of Information: EMS, Family History Limitations: Reports: Altered Mental Status, Combative/Threatening, Intoxication, Uncooperative - History of Present Illness Initial Comments - Free Text/Narative: 20-year-old male with past medical history of heroin addiction, polysubstance addiction who had recently been to a Suboxone clinic in [place] and was staying under the care of his father was noted to have changes in mental status. Over the last several days it was admitted that he had started having hallucinations, confusion and his father brought him to the emergency room. In the emergency room the patient became very combative, aggressive, unable to protect his airway, nausea, history of vomiting, and was intubated to protect his airway in the emergency room. The patient is appearing to have significant withdrawal. History is limited. No other significant past medical history was noted. Will be admitted to the ICU. Onset of Symptoms: Reports: Gradual (3 days) Duration of Symptoms: Reports: Getting Worse - Related Data Allergies/Adverse Reactions: Allergies Allergy/AdvReac Type Severity Reaction Status Date / Time No Known Allergies Allergy Verified 10/08/20 22:47 Home Medications: Home Meds ondansetron HCL [Zofran] 4 mg PO TID PRN #15 tablet 11/26/17 [Rx] Past Medical History - Past Health History Medical/Surgical History: Denies Medical/Surgical History (heroin abuse, marijuana abuse, alcohol abuse,) HEENT History: Reports: None Cardiovascular History: Reports: None Respiratory History: Reports: None Gastrointestinal History: Reports: None Genitourinary History: Reports: None Musculoskeletal History: Reports: None Neurological History: Reports: None Psychiatric History: Reports: Addiction (Primarily to opioids), Anxiety, Depression, Mood Swings Endocrine/Metabolic History: Reports: None - Infectious Disease History Infectious Disease History: Reports: None - Past Surgical History Head Surgeries/Procedures: Reports: None - Past Imaging History Past Imaging History: Reports: None Social & Family History - Tobacco Use Tobacco Use Status *Q: Current Every Day Tobacco User Years of Tobacco use: 5 Packs/Tins Daily: 1 - Caffeine Use Caffeine Use: Reports: None - Alcohol Use Alcohol Use History: Yes Alcohol Use Frequency: Binges - Recreational Drug Use Recreational Drug Use: Yes Recreational Drug Type: Reports: Heroin Recreational Drug Use Frequency: Daily - Living Situation & Occupation Living situation: Reports: Single Occupation: Unemployed (Came home from the [place] area a few days ago to [place] to his parents home. It is unclear if he is homeless or not.) H&P Review of Systems - Review of Systems: Review Of Systems: Unable To Obtain (due to intubated and sedated) Reason Not Obtained: intubated and sedated Exam - Exam Exam: See Below - Vital Signs Vital Signs: Last Vital Signs Temp 97.2 F 10/09/20 11:26 Pulse 71 10/09/20 10:46 Resp 15 10/09/20 11:26 BP 114/72 10/09/20 11:26 Pulse Ox 100 10/09/20 11:26 Weight: 129 lb - Exam Quality Assessment: Other (intubated) General: Sedated HEENT: Conjunctiva Clear Neck: Supple Lungs: Clear to Auscultation Cardiovascular: Regular Rate GI/Abdominal Exam: Normal Bowel Sounds Back Exam: Normal Inspection Extremities: Normal Inspection Peripheral Pulses: 2+: Brachial (L), Brachial (R), Dorsalis Pedis (L), Dorsalis Pedis (R) Skin: Warm, Dry, Intact Neurological: Reflexes Equal Bilateral Neuro Extensive - Mental Status: Withdraws to Pain DTR: 2+: Bicep (L), Bicep (R) - Patient Data Lab Results Last 24 hrs: Laboratory Results - last 24 hr 10/08/20 10/08/20 10/08/20 Range/Units 23:34 23:34 23:34 WBC 10.68 H (4.23-9.07) K/mm3 RBC 5.39 (4.63-6.08) M/mm3 Hgb 15.9 (13.7-17.5) gm/dl Hct 43.8 (40.1-51.0) % MCV 81.3 D (79.0-92.2) fl MCH 29.5 (25.7-32.2) pg MCHC 36.3 H (32.2-35.5) g/dl RDW Std Deviation 36.7 (35.1-43.9) fL Plt Count 443 H D (163-337) K/mm3 MPV 9.4 (9.4-12.3) fl Neut % (Auto) 81.7 H (34.0-67.9) % Lymph % (Auto) 12.6 L (21.8-53.1) % Emmons % (Auto) 5.1 L (5.3-12.2) % Eos % (Auto) 0.3 L (0.8-7.0) Baso % (Auto) 0.2 (0.1-1.2) % Neut # (Auto) 8.73 H (1.78-5.38) K/mm3 Lymph # (Auto) 1.35 (1.32-3.57) K/mm3 Emmons # (Auto) 0.54 (0.30-0.82) K/mm3 Eos # (Auto) 0.03 L (0.04-0.54) K/mm3 Baso # (Auto) 0.02 (0.01-0.08) K/mm3 Puncture Site ABG pH (7.35-7.45) ABG pCO2 (35.0-45.0) mmHg ABG pO2 (80.0-100.0) mmHg ABG HCO3 (22.0-26.0) meq/L ABG O2 Saturation (96.0-97.0) % ABG Base Excess (-2-2.0) A-a Gradient mmHg O2 Delivery Device FiO2 (21.00-100.00) % Tidal Volume cc PEEP cmH20 Sodium 144 (136-145) mEq/L Potassium 3.5 (3.5-5.1) mEq/L Chloride 105 (98-107) mEq/L Carbon Dioxide 24 (21-32) mEq/L Anion Gap 18.5 H (5-15) BUN 13 (7-18) mg/dL Creatinine 0.9 (0.7-1.3) mg/dL Est Cr Clr Drug Dosing 106.55 mL/min Estimated GFR (MDRD) > 60 (>60) mL/min BUN/Creatinine Ratio 14.4 (14-18) Glucose 140 H (70-99) mg/dL Calcium 9.3 (8.5-10.1) mg/dL Magnesium 2.3 (1.8-2.4) mg/dL Total Bilirubin 0.5 (0.2-1.0) mg/dL AST 21 (15-37) U/L ALT 19 (16-63) U/L Alkaline Phosphatase 100 (46-116) U/L Troponin I < 0.017 (0.00-0.056) ng/mL C-Reactive Protein <0.2 (<1.0) mg/dL Total Protein 7.6 (6.4-8.2) g/dl Albumin 4.7 (3.4-5.0) g/dl Globulin 2.9 gm/dL Albumin/Globulin Ratio 1.6 (1-2) Urine Color (Yellow) Urine Appearance (Clear) Urine pH (5.0-8.0) Ur Specific Sproul (1.005-1.030) Urine Protein (Negative) Urine Glucose (UA) (Negative) Urine Ketones (Negative) Urine Occult Blood (Negative) Urine Nitrite (Negative) Urine Bilirubin (Negative) Urine Urobilinogen (0.2-1.0) Ur Leukocyte Esterase (Negative) Urine RBC (0-5) /hpf Urine WBC (0-5) /hpf Ur Squamous Epith Cells (0-5) /hpf Amorphous Sediment (NOT SEEN) /hpf Urine Bacteria (FEW) /hpf Urine Mucus (FEW) /hpf Salicylates (2.8-20) mg/dL Urine Opiates Screen (JUPSSK=318) Ur Buprenorphine Scrn (CUTOFF=10) Ur Oxycodone Screen (OLO2XI=091) Urine Methadone Screen (EYY4GS=832) Ur Propoxyphene Screen (RJBDPQ=453) Acetaminophen (10-30) ug/mL Ur Barbiturates Screen (UWFTSR=879) Ur Tricyclics Screen (ZVQRWB=861) Ur Phencyclidine Scrn (CUTOFF=25) Ur Amphetamine Screen (DQIMRN=583) U Methamphetamines Scrn (PXMVVV=720) U Benzodiazepines Scrn (ZVWBUU=935) U Cocaine Metab Screen (TOJEZQ=622) U Marijuana (THC) Screen (CUTOFF=50) Ethyl Alcohol (0.00) gm% Hepatitis C Antibody Negative (NEGATIVE) HIV-1 Ab Rapid Screen Negative (NEGATIVE) SARS-CoV-2 RNA (RENETTA) (NEGATIVE) 10/08/20 10/08/20 10/08/20 Range/Units 23:34 23:34 23:48 WBC (4.23-9.07) K/mm3 RBC (4.63-6.08) M/mm3 Hgb (13.7-17.5) gm/dl Hct (40.1-51.0) % MCV (79.0-92.2) fl MCH (25.7-32.2) pg MCHC (32.2-35.5) g/dl RDW Std Deviation (35.1-43.9) fL Plt Count (163-337) K/mm3 MPV (9.4-12.3) fl Neut % (Auto) (34.0-67.9) % Lymph % (Auto) (21.8-53.1) % Emmons % (Auto) (5.3-12.2) % Eos % (Auto) (0.8-7.0) Baso % (Auto) (0.1-1.2) % Neut # (Auto) (1.78-5.38) K/mm3 Lymph # (Auto) (1.32-3.57) K/mm3 Emmons # (Auto) (0.30-0.82) K/mm3 Eos # (Auto) (0.04-0.54) K/mm3 Baso # (Auto) (0.01-0.08) K/mm3 Puncture Site ABG pH (7.35-7.45) ABG pCO2 (35.0-45.0) mmHg ABG pO2 (80.0-100.0) mmHg ABG HCO3 (22.0-26.0) meq/L ABG O2 Saturation (96.0-97.0) % ABG Base Excess (-2-2.0) A-a Gradient mmHg O2 Delivery Device FiO2 (21.00-100.00) % Tidal Volume cc PEEP cmH20 Sodium (136-145) mEq/L Potassium (3.5-5.1) mEq/L Chloride (98-107) mEq/L Carbon Dioxide (21-32) mEq/L Anion Gap (5-15) BUN (7-18) mg/dL Creatinine (0.7-1.3) mg/dL Est Cr Clr Drug Dosing mL/min Estimated GFR (MDRD) (>60) mL/min BUN/Creatinine Ratio (14-18) Glucose (70-99) mg/dL Calcium (8.5-10.1) mg/dL Magnesium (1.8-2.4) mg/dL Total Bilirubin (0.2-1.0) mg/dL AST (15-37) U/L ALT (16-63) U/L Alkaline Phosphatase (46-116) U/L Troponin I (0.00-0.056) ng/mL C-Reactive Protein (<1.0) mg/dL Total Protein (6.4-8.2) g/dl Albumin (3.4-5.0) g/dl Globulin gm/dL Albumin/Globulin Ratio (1-2) Urine Color Yellow (Yellow) Urine Appearance Clear (Clear) Urine pH 7.5 (5.0-8.0) Ur Specific Sproul 1.020 (1.005-1.030) Urine Protein Trace H (Negative) Urine Glucose (UA) Negative (Negative) Urine Ketones 2+ H (Negative) Urine Occult Blood Negative (Negative) Urine Nitrite Negative (Negative) Urine Bilirubin Negative (Negative) Urine Urobilinogen 1.0 (0.2-1.0) Ur Leukocyte Esterase Negative (Negative) Urine RBC Not seen (0-5) /hpf Urine WBC Not seen (0-5) /hpf Ur Squamous Epith Cells 0-5 (0-5) /hpf Amorphous Sediment Moderate H (NOT SEEN) /hpf Urine Bacteria Rare (FEW) /hpf Urine Mucus Rare (FEW) /hpf Salicylates 1.1 L (2.8-20) mg/dL Urine Opiates Screen (PRCAJY=446) Ur Buprenorphine Scrn (CUTOFF=10) Ur Oxycodone Screen (DIJ3AZ=727) Urine Methadone Screen (TJB2LP=343) Ur Propoxyphene Screen (DCSHED=713) Acetaminophen 0 L (10-30) ug/mL Ur Barbiturates Screen (CUIZJN=519) Ur Tricyclics Screen (XJRYPF=791) Ur Phencyclidine Scrn (CUTOFF=25) Ur Amphetamine Screen (IABLHR=337) U Methamphetamines Scrn (WSYMUU=572) U Benzodiazepines Scrn (YTDOOV=700) U Cocaine Metab Screen (AHKQQD=277) U Marijuana (THC) Screen (CUTOFF=50) Ethyl Alcohol 0.00 (0.00) gm% Hepatitis C Antibody (NEGATIVE) HIV-1 Ab Rapid Screen (NEGATIVE) SARS-CoV-2 RNA (RENETTA) (NEGATIVE) 10/08/20 10/09/20 10/09/20 Range/Units 23:48 02:19 08:52 WBC (4.23-9.07) K/mm3 RBC (4.63-6.08) M/mm3 Hgb (13.7-17.5) gm/dl Hct (40.1-51.0) % MCV (79.0-92.2) fl MCH (25.7-32.2) pg MCHC (32.2-35.5) g/dl RDW Std Deviation (35.1-43.9) fL Plt Count (163-337) K/mm3 MPV (9.4-12.3) fl Neut % (Auto) (34.0-67.9) % Lymph % (Auto) (21.8-53.1) % Emmons % (Auto) (5.3-12.2) % Eos % (Auto) (0.8-7.0) Baso % (Auto) (0.1-1.2) % Neut # (Auto) (1.78-5.38) K/mm3 Lymph # (Auto) (1.32-3.57) K/mm3 Emmons # (Auto) (0.30-0.82) K/mm3 Eos # (Auto) (0.04-0.54) K/mm3 Baso # (Auto) (0.01-0.08) K/mm3 Puncture Site Rt radial ABG pH 7.33 L (7.35-7.45) ABG pCO2 48.4 H (35.0-45.0) mmHg ABG pO2 141.0 H (80.0-100.0) mmHg ABG HCO3 25.0 (22.0-26.0) meq/L ABG O2 Saturation 98.9 H (96.0-97.0) % ABG Base Excess -0.8 (-2-2.0) A-a Gradient 12 mmHg O2 Delivery Device Ventilator FiO2 30.00 (21.00-100.00) % Tidal Volume 400.0 cc PEEP 5.0 cmH20 Sodium (136-145) mEq/L Potassium (3.5-5.1) mEq/L Chloride (98-107) mEq/L Carbon Dioxide (21-32) mEq/L Anion Gap (5-15) BUN (7-18) mg/dL Creatinine (0.7-1.3) mg/dL Est Cr Clr Drug Dosing mL/min Estimated GFR (MDRD) (>60) mL/min BUN/Creatinine Ratio (14-18) Glucose (70-99) mg/dL Calcium (8.5-10.1) mg/dL Magnesium (1.8-2.4) mg/dL Total Bilirubin (0.2-1.0) mg/dL AST (15-37) U/L ALT (16-63) U/L Alkaline Phosphatase (46-116) U/L Troponin I (0.00-0.056) ng/mL C-Reactive Protein (<1.0) mg/dL Total Protein (6.4-8.2) g/dl Albumin (3.4-5.0) g/dl Globulin gm/dL Albumin/Globulin Ratio (1-2) Urine Color (Yellow) Urine Appearance (Clear) Urine pH (5.0-8.0) Ur Specific Sproul (1.005-1.030) Urine Protein (Negative) Urine Glucose (UA) (Negative) Urine Ketones (Negative) Urine Occult Blood (Negative) Urine Nitrite (Negative) Urine Bilirubin (Negative) Urine Urobilinogen (0.2-1.0) Ur Leukocyte Esterase (Negative) Urine RBC (0-5) /hpf Urine WBC (0-5) /hpf Ur Squamous Epith Cells (0-5) /hpf Amorphous Sediment (NOT SEEN) /hpf Urine Bacteria (FEW) /hpf Urine Mucus (FEW) /hpf Salicylates (2.8-20) mg/dL Urine Opiates Screen Presumptive positive H (HGUUGL=882) Ur Buprenorphine Scrn Presumptive positive (CUTOFF=10) Ur Oxycodone Screen Negative (QOJ9TO=583) Urine Methadone Screen Negative (QKU2VE=528) Ur Propoxyphene Screen Negative (KFNYRN=253) Acetaminophen (10-30) ug/mL Ur Barbiturates Screen Negative (KVUOYP=638) Ur Tricyclics Screen Negative (PLSPEL=386) Ur Phencyclidine Scrn Negative (CUTOFF=25) Ur Amphetamine Screen Negative (YNIXOR=994) U Methamphetamines Scrn Negative (RBVVPF=554) U Benzodiazepines Scrn Negative (UDJJJZ=928) U Cocaine Metab Screen Negative (EBXIAA=241) U Marijuana (THC) Screen Presumptive positive H (CUTOFF=50) Ethyl Alcohol (0.00) gm% Hepatitis C Antibody (NEGATIVE) HIV-1 Ab Rapid Screen (NEGATIVE) SARS-CoV-2 RNA (RENETTA) Negative (NEGATIVE) Result Diagrams: 10/08/20 23:34 10/08/20 23:34 Sepsis Event Note - Evaluation Sepsis Screening Result: No Definite Risk - Focused Exam Vital Signs: Vital Signs Temp Pulse Resp BP BP Pulse Ox 10/09/20 11:26 97.2 F 15 114/72 100 10/09/20 10:46 71 16 119/82 100 10/09/20 10:10 70 16 108/56 L 99 10/09/20 08:45 81 16 111/68 100 10/09/20 07:35 95 16 104/72 100 10/09/20 04:15 120 H 16 90/65 98 10/09/20 04:00 104 H 20 105/67 98 10/09/20 03:45 110 H 19 114/64 98 10/09/20 03:30 119 H 13 96/66 98 10/09/20 03:15 125 H 12 94/67 98 10/09/20 03:00 110 H 25 H 116/77 99 10/09/20 02:45 112 H 12 128/72 98 10/09/20 02:30 96 12 165/97 H 97 10/09/20 02:15 136 H 26 H 141/100 H 98 10/09/20 02:00 89 14 170/106 H 97 10/09/20 01:45 138 H 16 171/105 H 98 10/09/20 01:30 140 H 46 H 155/103 H 99 10/08/20 23:36 136/83 Problem List Initiated/Reviewed/Updated: Yes Orders Last 24hrs: Active Orders 24 hr Category Date Time Status Admission Status [Patient Status] [ADT] Routine ADT 10/09/20 10:00 Active Gastrointestinal Tube Mgmt [RC] Q4HR Care 10/09/20 02:08 Active Initiate/Renew Violent-Self Destructive Restraints >/= Care 10/09/20 00:45 Ordered 16yo Q4H Initiate/Renew Violent-Self Destructive Restraints >/= Care 10/09/20 04:45 Ordered 16yo Q4H Initiate/Renew Violent-Self Destructive Restraints >/= Care 10/09/20 08:45 Ordered 16yo Q4H Insert Urinary Catheter [OM.PC] Q24H Care 10/09/20 02:15 Ordered Nrsg Assess: Viol-S.Dest Rest [RC] Q1H Care 10/09/20 11:18 Active RASS Sedation Scale [RC] ASDIRECTED Care 10/09/20 00:50 Active Urinary Catheter Assessment [RC] ASDIRECTED Care 10/09/20 02:08 Active Ventilator Assessment, ED [RT Ventilator ED, Adult] [ Care 10/09/20 09:55 Active ] ASDIRECTED Dextrose 5%-Lactated Ringers 1,000 ml Med 10/08/20 23:15 Active IV ASDIRECTED Sodium Chloride 0.9% [Normal Saline] 1,000 ml Med 10/09/20 03:15 Active IV ASDIRECTED fentaNYL [Sublimaze] 2,500 mcg Med 10/09/20 03:30 Active Sodium Chloride 0.9% [Normal Saline] 200 ml IV TITRATE propofoL [Diprivan 100 ML] 100 ml Med 10/09/20 01:00 Active IV TITRATE Desired Level of Sedation (RASS) [AST] Click To Edit Oth 10/09/20 00:50 Ordered Nasogastric Orogastric Tube Insertion [OM.PC] Routine Oth 10/09/20 02:08 Ordered Medication Orders Dextrose/Lactated Ringer's (Dextrose 5%-Lactated Ringers) 1,000 mls @ 999 mls/hr IV ASDIRECTED FACUNDO Last Admin: 10/08/20 23:34 Dose: 999 mls/hr Documented by: LILIAN Propofol (Diprivan 100 Ml) 100 mls @ 1.755 mls/hr IV TITRATE FACUNDO; Protocol Last Titration: 10/09/20 10:12 Dose: 38 mcg/kg/min, 13.341 mls/hr Documented by: Titration: 10/09/20 09:45 Dose: 40 mcg/kg/min, 14.043 mls/hr Documented by: Titration: 10/09/20 08:30 Dose: 40 mcg/kg/min, 14.043 mls/hr Documented by: Titration: 10/09/20 06:18 Dose: 35 mcg/kg/min, 12.288 mls/hr Documented by: Admin: 10/09/20 06:16 Dose: 45 mcg/kg/min, 15.799 mls/hr Documented by: Titration: 10/09/20 06:16 Dose: 45 mcg/kg/min, 15.799 mls/hr Documented by: Titration: 10/09/20 04:52 Dose: 45 mcg/kg/min, 15.799 mls/hr Documented by: Titration: 10/09/20 04:27 Dose: 50 mcg/kg/min, 17.554 mls/hr Documented by: Titration: 10/09/20 02:59 Dose: 60 mcg/kg/min, 21.065 mls/hr Documented by: Titration: 10/09/20 02:30 Dose: 50 mcg/kg/min, 17.554 mls/hr Documented by: Titration: 10/09/20 02:10 Dose: 35 mcg/kg/min, 12.288 mls/hr Documented by: Titration: 10/09/20 02:00 Dose: 25 mcg/kg/min, 8.777 mls/hr Documented by: Titration: 10/09/20 01:30 Dose: 20 mcg/kg/min, 7.022 mls/hr Documented by: Titration: 10/09/20 01:10 Dose: 15 mcg/kg/min, 5.266 mls/hr Documented by: Admin: 10/09/20 01:05 Dose: 5 mcg/kg/min, 1.755 mls/hr Documented by: LILIAN Sodium Chloride (Normal Saline) 1,000 mls @ 150 mls/hr IV ASDIRECTED FACUNDO Last Admin: 10/09/20 01:00 Dose: 150 mls/hr Documented by: PAYALCOGabby Fentanyl 2,500 mcg/ Sodium (Chloride) 250 mls @ 87.77 mls/hr IV TITRATE FACUNDO; Protocol Last Admin: 10/09/20 10:43 Dose: 28 mcg/kg/hr, 163.836 mls/hr Documented by: Titration: 10/09/20 10:43 Dose: 28 mcg/kg/hr, 163.836 mls/hr Documented by: Admin: 10/09/20 10:16 Dose: 28 mcg/kg/hr, 163.836 mls/hr Documented by: Titration: 10/09/20 10:12 Dose: 28 mcg/kg/hr, 163.836 mls/hr Documented by: Titration: 10/09/20 09:45 Dose: 28 mcg/kg/hr, 163.836 mls/hr Documented by: Titration: 10/09/20 08:30 Dose: 30 mcg/kg/hr, 175.539 mls/hr Documented by: Admin: 10/09/20 06:17 Dose: 30 mcg/kg/hr, 175.539 mls/hr Documented by: Titration: 10/09/20 06:17 Dose: 30 mcg/kg/hr, 175.539 mls/hr Documented by: Admin: 10/09/20 04:53 Dose: 30 mcg/kg/hr, 175.539 mls/hr Documented by: Titration: 10/09/20 04:53 Dose: 30 mcg/kg/hr, 175.539 mls/hr Documented by: Titration: 10/09/20 04:52 Dose: 30 mcg/kg/hr, 175.539 mls/hr Documented by: Titration: 10/09/20 04:23 Dose: 35 mcg/kg/hr, 204.796 mls/hr Documented by: Titration: 10/09/20 03:46 Dose: 25 mcg/kg/hr, 146.283 mls/hr Documented by: Admin: 10/09/20 03:31 Dose: 15 mcg/kg/hr, 87.77 mls/hr Documented by: EVONCOU Assessment/Plan Comment:: 1. Substance abuse/withdrawal- 10/09/20 patient had nausea vomiting, aggressiveness, and not protecting airway. Patient is obviously withdrawing and has positive opioids and marijuana noted on his screen. Patient also has been taking Suboxone outpatient. Patient is presently on propofol and fentanyl drip. We will wean off the fentanyl drip and replace it with Precedex. We will then slowly wean off propofol and remain with Precedex while we wean and hopefully extubate soon. Patient will continue on fluids at 150 an hour. We will continue intubated with an MAS of 2. ppx lovenox total time 80 min
[2020-10-09] MEDS ORDERED: Acetaminophen 650 MG Supp RECTAL PRN (12:01)
[2020-10-09] MEDS: Enoxaparin 40 MG/0.4 ML Syringe SUBCUT SCH (14:20)
[2020-10-09] MEDS: DEXTROSE IV SCH ×2 (15:02)
[2020-10-09] MEDS: DEXMEDETOMIDINE IV SCH ×2 (15:02)
[2020-10-10] MEDS: propofoL 100 ML IV SCH ×2 (01:01→06:05)
[2020-10-10] MEDS: DEXTROSE IV SCH ×2 (02:23)
[2020-10-10] MEDS: DEXMEDETOMIDINE IV SCH ×2 (02:23)
[2020-10-10] MEDS ORDERED: Ondansetron 4 MG/2 ML SDV IVPUSH ONE (04:35)
[2020-10-10] MEDS: Sodium Chloride 0.9% 1,000 ML IV SCH (05:14)
[2020-10-10] MEDS ORDERED: Dextrose 5%-0.9% NaCl 1,000 ML IV SCH (08:00)
[2020-10-10] MEDS: Pantoprazole 40 MG Vial IVPUSH SCH (08:06)
--- NOTE | 2020-10-10 09:50 | PCM.PN ---
- General Info Date of Service: 10/10/20 Admission Dx/Problem (Free Text): polysubstance abuse and withdrawal Subjective Update: Patient is now extubated with both propofol and precedex stopped. jos Shi still in for now. Planning to evaluated for suicidal ideations and make sure he is aox4. Plan to speak further again with father when he returns again this am about placement in 30 day detox program Functional Status: Reports: Pain Controlled - Review of Systems General: Reports: No Symptoms HEENT: Reports: No Symptoms Pulmonary: Reports: No Symptoms Cardiovascular: Reports: No Symptoms Gastrointestinal: Reports: No Symptoms Genitourinary: Reports: No Symptoms Musculoskeletal: Reports: No Symptoms Neurological: Reports: No Symptoms Psychiatric: Reports: Confusion, Depression - Patient Data Vitals - Most Recent: Last Vital Signs Temp 98.9 F 10/10/20 09:00 Pulse 58 L 10/10/20 06:15 Resp 15 10/10/20 09:00 BP 103/60 10/10/20 09:00 Pulse Ox 99 10/10/20 09:00 Weight - Most Recent: 136 lb 8 oz I&O - Last 24 Hours: Intake & Output 10/09/20 10/10/20 10/10/20 22:59 06:59 14:59 Intake Total 1893 2103 Output Total 930 765 50 Balance 963 1338 -50 Lab Results Last 24 Hours: Laboratory Results - last 24 hr 10/09/20 10/10/20 10/10/20 Range/Units 12:53 05:23 05:23 WBC 14.47 H (4.23-9.07) K/mm3 RBC 4.59 L (4.63-6.08) M/mm3 Hgb 13.4 L D (13.7-17.5) gm/dl Hct 39.8 L (40.1-51.0) % MCV 86.7 D (79.0-92.2) fl MCH 29.2 (25.7-32.2) pg MCHC 33.7 (32.2-35.5) g/dl RDW Std Deviation 40.7 (35.1-43.9) fL Plt Count 268 D (163-337) K/mm3 MPV 9.9 (9.4-12.3) fl Neut % (Auto) 73.4 H (34.0-67.9) % Lymph % (Auto) 17.4 L (21.8-53.1) % [place] % (Auto) 6.7 (5.3-12.2) % Eos % (Auto) 2.0 (0.8-7.0) Baso % (Auto) 0.2 (0.1-1.2) % Neut # (Auto) 10.62 H (1.78-5.38) K/mm3 Lymph # (Auto) 2.52 (1.32-3.57) K/mm3 [place] # (Auto) 0.97 H (0.30-0.82) K/mm3 Eos # (Auto) 0.29 (0.04-0.54) K/mm3 Baso # (Auto) 0.03 (0.01-0.08) K/mm3 Sodium 148 H (136-145) mEq/L Potassium 4.0 (3.5-5.1) mEq/L Chloride 114 H (98-107) mEq/L Carbon Dioxide 24 (21-32) mEq/L Anion Gap 14.0 (5-15) BUN 10 (7-18) mg/dL Creatinine 0.8 (0.7-1.3) mg/dL Est Cr Clr Drug Dosing 126.84 mL/min Estimated GFR (MDRD) > 60 (>60) mL/min BUN/Creatinine Ratio 12.5 L (14-18) Glucose 72 (70-99) mg/dL Lactic Acid TNP Calcium 7.6 L D (8.5-10.1) mg/dL Total Bilirubin 0.4 (0.2-1.0) mg/dL AST 31 (15-37) U/L ALT 18 (16-63) U/L Alkaline Phosphatase 71 (46-116) U/L Total Protein 5.3 L (6.4-8.2) g/dl Albumin 3.0 L (3.4-5.0) g/dl Globulin 2.3 gm/dL Albumin/Globulin Ratio 1.3 (1-2) 10/10/20 Range/Units 07:15 WBC (4.23-9.07) K/mm3 RBC (4.63-6.08) M/mm3 Hgb (13.7-17.5) gm/dl Hct (40.1-51.0) % MCV (79.0-92.2) fl MCH (25.7-32.2) pg MCHC (32.2-35.5) g/dl RDW Std Deviation (35.1-43.9) fL Plt Count (163-337) K/mm3 MPV (9.4-12.3) fl Neut % (Auto) (34.0-67.9) % Lymph % (Auto) (21.8-53.1) % [place] % (Auto) (5.3-12.2) % Eos % (Auto) (0.8-7.0) Baso % (Auto) (0.1-1.2) % Neut # (Auto) (1.78-5.38) K/mm3 Lymph # (Auto) (1.32-3.57) K/mm3 [place] # (Auto) (0.30-0.82) K/mm3 Eos # (Auto) (0.04-0.54) K/mm3 Baso # (Auto) (0.01-0.08) K/mm3 Sodium (136-145) mEq/L Potassium (3.5-5.1) mEq/L Chloride (98-107) mEq/L Carbon Dioxide (21-32) mEq/L Anion Gap (5-15) BUN (7-18) mg/dL Creatinine (0.7-1.3) mg/dL Est Cr Clr Drug Dosing mL/min Estimated GFR (MDRD) (>60) mL/min BUN/Creatinine Ratio (14-18) Glucose (70-99) mg/dL Lactic Acid TNP Calcium (8.5-10.1) mg/dL Total Bilirubin (0.2-1.0) mg/dL AST (15-37) U/L ALT (16-63) U/L Alkaline Phosphatase (46-116) U/L Total Protein (6.4-8.2) g/dl Albumin (3.4-5.0) g/dl Globulin gm/dL Albumin/Globulin Ratio (1-2) Med Orders - Current: Current Medications Acetaminophen (Acetaminophen 650 Mg Supp) 650 mg RECTAL Q4H PRN PRN Reason: Pain (mild 1-3) Enoxaparin Sodium (Enoxaparin 40 Mg/0.4 Ml Syringe) 40 mg SUBCUT Q24H [facility] Last Admin: 08/31/21 14:20 Dose: 40 mg Documented by: Dextrose/Lactated Ringer's (Dextrose 5%-Lactated Ringers) 1,000 mls @ 999 mls/hr IV ASDIRECTED FACUNDO Last Admin: 10/08/20 23:34 Dose: 999 mls/hr Documented by: Propofol (Diprivan 100 Ml) 100 mls @ 1.755 mls/hr IV TITRATE FACUNDO; Protocol Last Titration: 10/10/20 09:30 Dose: 0 mcg/kg/min, 0 mls/hr Documented by: Fentanyl 2,500 mcg/ Sodium (Chloride) 250 mls @ 87.77 mls/hr IV TITRATE FACUNDO; Protocol Last Titration: 10/09/20 15:08 Dose: 0 mcg/kg/hr, 0 mls/hr Documented by: dexmedeTOMIDine in dextrose 5% (400 mcg/ Premix) 100 mls @ 5.851 mls/hr IV TITRATE FACUNDO; Protocol Last Titration: 10/10/20 09:26 Dose: 0.6 mcg/kg/hr, 8.777 mls/hr Documented by: Dextrose/Sodium Chloride (Dextrose 5%-Normal Saline) 1,000 mls @ 75 mls/hr IV ASDIRECTED FACUNDO Last Admin: 10/10/20 07:59 Dose: 75 mls/hr Documented by: Pantoprazole Sodium (Pantoprazole 40 Mg Vial) 40 mg IVPUSH DAILY [facility] Last Admin: 10/10/20 08:06 Dose: 40 mg Documented by: Discontinued Medications Clonidine HCl (Clonidine 0.1 Mg Tab) 0.1 mg PO ONETIME ONE Stop: 10/08/20 23:16 Last Admin: 10/08/20 23:36 Dose: 0.1 mg Documented by: Etomidate (Etomidate 2 Mg/Ml 20 Ml Sdv) 20 mg IVPUSH ONETIME ONE Stop: 10/09/20 00:49 Last Admin: 10/09/20 00:55 Dose: 20 mg Documented by: Haloperidol Lactate (Haloperidol Lactate 5 Mg/Ml Sdv) 2.5 mg IVPUSH ONETIME ONE Stop: 10/09/20 00:26 Last Admin: 10/09/20 00:27 Dose: 2.5 mg Documented by: Haloperidol Lactate (Haloperidol Lactate 5 Mg/Ml Sdv) Confirm Administered Dose 5 mg .ROUTE .STK-MED ONE Stop: 10/09/20 00:28 Last Admin: 10/09/20 02:35 Dose: Not Given Documented by: Haloperidol Lactate (Haloperidol Lactate 5 Mg/Ml Sdv) 5 mg IVPUSH ONETIME ONE Stop: 10/09/20 00:39 Last Admin: 10/09/20 00:40 Dose: 5 mg Documented by: Promethazine HCl 25 mg/ Sodium (Chloride) 51 mls @ 100 mls/hr IV ONETIME ONE Stop: 10/08/20 23:45 Last Admin: 10/08/20 23:34 Dose: 100 mls/hr Documented by: Sodium Chloride (Normal Saline) 1,000 mls @ 150 mls/hr IV ASDIRECTED [facility] Last Admin: 10/10/20 05:14 Dose: 150 mls/hr Documented by: Lorazepam (Lorazepam 2 Mg/Ml Sdv) 1 mg IVPUSH ONETIME ONE Stop: 10/08/20 23:16 Last Admin: 10/08/20 23:36 Dose: 1 mg Documented by: Lorazepam (Lorazepam 2 Mg/Ml Sdv) 1 mg IVPUSH ONETIME ONE Stop: 10/09/20 00:11 Last Admin: 10/09/20 00:16 Dose: 1 mg Documented by: Lorazepam (Lorazepam 2 Mg/Ml Sdv) Confirm Administered Dose 2 mg .ROUTE .STK-MED ONE Stop: 10/09/20 00:34 Last Admin: 10/09/20 02:35 Dose: Not Given Documented by: Midazolam HCl (Midazolam 5 Mg/Ml 10 Ml Mdv) 4 mg IV ONETIME ONE Stop: 10/09/20 02:15 Last Admin: 10/09/20 03:14 Dose: Not Given Documented by: Midazolam HCl (Midazolam 1 Mg/Ml 2 Ml Sdv) Confirm Administered Dose 4 mg .ROUTE .STK-MED ONE Stop: 10/09/20 02:17 Last Admin: 10/09/20 02:36 Dose: Not Given Documented by: Midazolam HCl (Midazolam 1 Mg/Ml 2 Ml Sdv) 4 mg IVPUSH ONETIME ONE Stop: 10/09/20 03:13 Last Admin: 10/09/20 02:15 Dose: 4 mg Documented by: Ondansetron HCl (Ondansetron 4 Mg/2 Ml Sdv) 4 mg IVPUSH ONETIME ONE Stop: 10/10/20 04:36 Last Admin: 10/10/20 04:47 Dose: 4 mg Documented by: Propofol (Propofol 200 Mg/20 Ml Sdv) 90 mg IVPUSH ONETIME ONE Stop: 10/09/20 00:50 Last Admin: 10/09/20 01:00 Dose: 90 mg Documented by: Rocuronium [place] (Rocuronium 50 Mg/5 Ml Vial) 35 mg 0.6 mg/kg (35 mg) IVPUSH NOW ONE Stop: 10/09/20 01:13 Last Admin: 10/09/20 01:13 Dose: 35 mg Documented by: Rocuronium [place] (Rocuronium 50 Mg/5 Ml Vial) Confirm Administered Dose 50 mg .ROUTE .STK-MED ONE Stop: 10/09/20 01:14 Last Admin: 10/09/20 02:37 Dose: Not Given Documented by: Rocuronium [place] (Rocuronium 50 Mg/5 Ml Vial) 35 mg IVPUSH ONETIME ONE Stop: 10/09/20 03:14 Last Admin: 10/09/20 03:10 Dose: 35 mg Documented by: Succinylcholine Chloride (Succinylcholine 200 Mg/10 Ml Mdv) 90 mg IV ONETIME ONE Stop: 10/09/20 00:49 Last Admin: 10/09/20 00:51 Dose: 90 mg Documented by: Vecuronium [place] (Vecuronium 10 Mg Vial) 6 mg 0.1 mg/kg (6 mg) IVPUSH ONETIME ONE Stop: 10/09/20 01:41 Last Admin: 10/09/20 01:40 Dose: 6 mg Documented by: Vecuronium [place] (Vecuronium 10 Mg Vial) Confirm Administered Dose 10 mg .ROUTE .STK-MED ONE Stop: 10/09/20 01:42 Last Admin: 10/09/20 02:35 Dose: Not Given Documented by: - Exam Quality Assessment: Supplemental Oxygen Urinary Catheter Total Time: 1Days 6Hours General: Alert, Oriented HEENT: Pupils Equal Neck: Supple Lungs: Clear to Auscultation (post extubation), Normal Respiratory Effort, Crackles GI/Abdominal Exam: Normal Bowel Sounds (Male) Exam: No Hernia, Normal Inspection Back Exam: Normal Inspection Extremities: Normal Inspection Skin: Warm Neurological: No New Focal Deficit Psy/Mental Status: Alert, Normal Affect, Depressed - Patient Data Lab Results Last 24 hrs: Laboratory Results - last 24 hr 10/09/20 10/10/20 10/10/20 Range/Units 12:53 05:23 05:23 WBC 14.47 H (4.23-9.07) K/mm3 RBC 4.59 L (4.63-6.08) M/mm3 Hgb 13.4 L D (13.7-17.5) gm/dl Hct 39.8 L (40.1-51.0) % MCV 86.7 D (79.0-92.2) fl MCH 29.2 (25.7-32.2) pg MCHC 33.7 (32.2-35.5) g/dl RDW Std Deviation 40.7 (35.1-43.9) fL Plt Count 268 D (163-337) K/mm3 MPV 9.9 (9.4-12.3) fl Neut % (Auto) 73.4 H (34.0-67.9) % Lymph % (Auto) 17.4 L (21.8-53.1) % [place] % (Auto) 6.7 (5.3-12.2) % Eos % (Auto) 2.0 (0.8-7.0) Baso % (Auto) 0.2 (0.1-1.2) % Neut # (Auto) 10.62 H (1.78-5.38) K/mm3 Lymph # (Auto) 2.52 (1.32-3.57) K/mm3 [place] # (Auto) 0.97 H (0.30-0.82) K/mm3 Eos # (Auto) 0.29 (0.04-0.54) K/mm3 Baso # (Auto) 0.03 (0.01-0.08) K/mm3 Sodium 148 H (136-145) mEq/L Potassium 4.0 (3.5-5.1) mEq/L Chloride 114 H (98-107) mEq/L Carbon Dioxide 24 (21-32) mEq/L Anion Gap 14.0 (5-15) BUN 10 (7-18) mg/dL Creatinine 0.8 (0.7-1.3) mg/dL Est Cr Clr Drug Dosing 126.84 mL/min Estimated GFR (MDRD) > 60 (>60) mL/min BUN/Creatinine Ratio 12.5 L (14-18) Glucose 72 (70-99) mg/dL Lactic Acid TNP Calcium 7.6 L D (8.5-10.1) mg/dL Total Bilirubin 0.4 (0.2-1.0) mg/dL AST 31 (15-37) U/L ALT 18 (16-63) U/L Alkaline Phosphatase 71 (46-116) U/L Total Protein 5.3 L (6.4-8.2) g/dl Albumin 3.0 L (3.4-5.0) g/dl Globulin 2.3 gm/dL Albumin/Globulin Ratio 1.3 (1-2) 10/10/20 Range/Units 07:15 WBC (4.23-9.07) K/mm3 RBC (4.63-6.08) M/mm3 Hgb (13.7-17.5) gm/dl Hct (40.1-51.0) % MCV (79.0-92.2) fl MCH (25.7-32.2) pg MCHC (32.2-35.5) g/dl RDW Std Deviation (35.1-43.9) fL Plt Count (163-337) K/mm3 MPV (9.4-12.3) fl Neut % (Auto) (34.0-67.9) % Lymph % (Auto) (21.8-53.1) % [place] % (Auto) (5.3-12.2) % Eos % (Auto) (0.8-7.0) Baso % (Auto) (0.1-1.2) % Neut # (Auto) (1.78-5.38) K/mm3 Lymph # (Auto) (1.32-3.57) K/mm3 [place] # (Auto) (0.30-0.82) K/mm3 Eos # (Auto) (0.04-0.54) K/mm3 Baso # (Auto) (0.01-0.08) K/mm3 Sodium (136-145) mEq/L Potassium (3.5-5.1) mEq/L Chloride (98-107) mEq/L Carbon Dioxide (21-32) mEq/L Anion Gap (5-15) BUN (7-18) mg/dL Creatinine (0.7-1.3) mg/dL Est Cr Clr Drug Dosing mL/min Estimated GFR (MDRD) (>60) mL/min BUN/Creatinine Ratio (14-18) Glucose (70-99) mg/dL Lactic Acid TNP Calcium (8.5-10.1) mg/dL Total Bilirubin (0.2-1.0) mg/dL AST (15-37) U/L ALT (16-63) U/L Alkaline Phosphatase (46-116) U/L Total Protein (6.4-8.2) g/dl Albumin (3.4-5.0) g/dl Globulin gm/dL Albumin/Globulin Ratio (1-2) Result Diagrams: 10/10/20 05:23 10/10/20 05:23 Sepsis Event Note - Evaluation Sepsis Screening Result: Possible Sepsis Risk - Focused Exam Vital Signs: Vital Signs Temp Temp Pulse Resp BP BP Pulse Ox 10/10/20 09:00 98.9 F 15 103/60 99 10/10/20 08:40 10/10/20 08:00 98.9 F 15 129/73 97 10/10/20 06:15 58 L 15 116/71 98 10/10/20 06:14 58 L 14 98 10/10/20 06:01 60 14 98 10/10/20 06:00 61 14 117/70 98 10/10/20 05:59 59 L 15 98 10/10/20 05:45 58 L 14 118/70 97 10/10/20 05:44 56 L 14 97 10/10/20 05:30 59 L 14 118/71 97 10/10/20 05:29 60 14 97 10/10/20 05:15 59 L 14 118/71 96 10/10/20 05:14 57 L 14 96 10/10/20 05:01 57 L 14 96 10/10/20 05:00 55 L 14 118/70 97 10/10/20 04:59 56 L 14 96 10/10/20 04:45 13 131/78 10/10/20 04:44 15 10/10/20 04:30 58 L 14 117/69 99 10/10/20 04:29 60 14 99 10/10/20 04:15 57 L 14 117/66 100 10/10/20 04:14 60 14 99 10/10/20 04:01 58 L 14 98 10/10/20 04:00 98.1 F 98.1 F 58 L 14 114/67 117/66 99 10/10/20 03:59 55 L 14 98 10/10/20 03:45 58 L 14 118/69 98 10/10/20 03:44 58 L 14 98 10/10/20 03:30 57 L 14 110/66 97 10/10/20 03:29 57 L 14 98 10/10/20 03:16 56 L 14 117/69 99 10/10/20 03:15 54 L 14 98 10/10/20 03:01 55 L 14 114/70 99 10/10/20 03:00 53 L 14 97 10/10/20 02:46 54 L 14 115/72 99 10/10/20 02:45 51 L 14 99 10/10/20 02:31 51 L 14 124/94 H 100 10/10/20 02:30 15 10/10/20 02:16 49 L 14 108/70 100 10/10/20 02:15 53 L 14 100 10/10/20 02:01 55 L 14 107/62 99 10/10/20 02:00 53 L 14 98 10/10/20 01:46 55 L 14 109/61 99 10/10/20 01:45 50 L 14 99 10/10/20 01:31 52 L 14 105/61 99 10/10/20 01:30 49 L 14 99 10/10/20 01:16 51 L 14 107/65 99 10/10/20 01:15 48 L 14 99 10/10/20 01:01 50 L 14 107/68 100 10/10/20 01:00 51 L 14 100 10/10/20 00:46 50 L 14 105/67 99 10/10/20 00:45 49 L 14 99 10/10/20 00:31 45 L 14 104/63 100 10/10/20 00:30 63 18 100 10/10/20 00:16 16 106/78 10/10/20 00:15 14 10/10/20 00:01 50 L 14 101/61 98 10/10/20 00:00 97.6 F 97.5 F 47 L 14 104/63 101/61 98 10/09/20 23:46 49 L 14 98/57 L 99 10/09/20 23:45 48 L 14 98 10/09/20 23:30 49 L 14 98/55 L 98 10/09/20 23:29 47 L 14 98 10/09/20 23:15 49 L 14 97/54 L 97 10/09/20 23:14 51 L 14 97 10/09/20 23:07 10/09/20 23:01 49 L 14 96 10/09/20 23:00 52 L 14 94/57 L 96 10/09/20 22:59 51 L 14 96 10/09/20 22:45 52 L 14 94/51 L 97 10/09/20 22:44 52 L 14 96 10/09/20 22:42 51 L 14 96 10/09/20 22:30 55 L 14 96/52 L 92 L 10/09/20 22:29 55 L 14 93 L 10/09/20 22:15 54 L 14 103/57 L 95 10/09/20 22:14 53 L 14 94 L 10/09/20 22:01 55 L 14 90 L 10/09/20 22:00 55 L 14 98/59 L 90 L 10/09/20 21:59 56 L 14 90 L Pulse Ox 10/10/20 09:00 10/10/20 08:40 100 10/10/20 08:00 10/10/20 06:15 10/10/20 06:14 10/10/20 06:01 10/10/20 06:00 10/10/20 05:59 10/10/20 05:45 10/10/20 05:44 10/10/20 05:30 10/10/20 05:29 10/10/20 05:15 10/10/20 05:14 10/10/20 05:01 10/10/20 05:00 10/10/20 04:59 10/10/20 04:45 10/10/20 04:44 10/10/20 04:30 10/10/20 04:29 10/10/20 04:15 10/10/20 04:14 10/10/20 04:01 10/10/20 04:00 10/10/20 03:59 10/10/20 03:45 10/10/20 03:44 10/10/20 03:30 10/10/20 03:29 10/10/20 03:16 10/10/20 03:15 10/10/20 03:01 10/10/20 03:00 10/10/20 02:46 10/10/20 02:45 10/10/20 02:31 10/10/20 02:30 10/10/20 02:16 10/10/20 02:15 10/10/20 02:01 10/10/20 02:00 10/10/20 01:46 10/10/20 01:45 10/10/20 01:31 10/10/20 01:30 10/10/20 01:16 10/10/20 01:15 10/10/20 01:01 10/10/20 01:00 10/10/20 00:46 10/10/20 00:45 10/10/20 00:31 10/10/20 00:30 10/10/20 00:16 10/10/20 00:15 10/10/20 00:01 10/10/20 00:00 10/09/20 23:46 10/09/20 23:45 10/09/20 23:30 10/09/20 23:29 10/09/20 23:15 10/09/20 23:14 10/09/20 23:07 96 10/09/20 23:01 10/09/20 23:00 10/09/20 22:59 10/09/20 22:45 10/09/20 22:44 10/09/20 22:42 10/09/20 22:30 10/09/20 22:29 10/09/20 22:15 10/09/20 22:14 10/09/20 22:01 10/09/20 22:00 10/09/20 21:59 - Problem List Review Problem List Initiated/Reviewed/Updated: Yes - My Orders Last 24 Hours: My Active Orders 10/09/20 11:45 dexmedeTOMIDine in dextrose 5% [dexmedeTOMIDine in D5W 400 MCG/100 ML] 400 mcg Premix Bag 100 bag IV TITRATE 10/09/20 12:01 Oxygen Therapy [RC] ASDIRECTED Acetaminophen [Tylenol] 650 mg RECTAL Q4H PRN Nasogastric Orogastric Tube Insertion [OM.PC] Routine Seizure Precautions [OM.PC] Routine Resuscitation Status Routine 10/09/20 12:02 Cardiac Monitoring [RC] CONTINUOUS Pulse Oximetry [RC] CONTINUOUS 10/09/20 12:15 Insert Urinary Catheter [OM.PC] Q24H 10/09/20 12:53 BLOOD CULTURE [MREF] Stat 10/09/20 13:00 Enoxaparin [Lovenox] 40 mg SUBCUT Q24H 10/09/20 16:00 Initiate/Renew Non-Violent Restraints (All Ages) Q24H 10/09/20 16:01 Nrsg Assess Restraint Init/Mon [RC] Q2HR 10/10/20 08:00 Dextrose 5%-0.9% NaCl [Dextrose 5%-Normal Saline] 1,000 ml IV ASDIRECTED 10/10/20 09:00 Pantoprazole [ProTONIX IV] 40 mg IVPUSH DAILY 10/10/20 16:00 Initiate/Renew Non-Violent Restraints (All Ages) Q24H 10/11/20 05:11 CBC WITH AUTO DIFF [HEME] AM COMPREHENSIVE METABOLIC PN,CMP [CHEM] AM 10/12/20 05:11 CBC WITH AUTO DIFF [HEME] AM COMPREHENSIVE METABOLIC PN,CMP [CHEM] AM 10/13/20 05:11 CBC WITH AUTO DIFF [HEME] AM COMPREHENSIVE METABOLIC PN,CMP [CHEM] AM - Assessment Assessment:: 1. Substance abuse/withdrawal- 10/09/20 patient had nausea vomiting, aggressiveness, and not protecting airway. Patient is obviously withdrawing and has positive opioids and marijuana noted o n his screen. Patient also has been taking Suboxone outpatient. Patient is presently on propofol and fentanyl drip. We will wean off the fentanyl drip and replace it with Precedex. We will then slowly wean off propofol and remain with Precedex while we wean and hopefully extubate soon. Patient will continue on fluids at 150 an hour. We will continue intubated with an MAS of 2. 10/10/20 patient had propofol and precedex stopped and patient has been extubated and ng removed. next will be remove the arguello and eval for possible need for antipsychotics, antidepressants. will make sutre no suicidal ideation is noted. we will discuss further the need for placement in 30 day program ppx lovenox - Plan Plan:: 1. Substance abuse/withdrawal- 10/09/20 patient had nausea vomiting, aggressiveness, and not protecting airway. Patient is obviously withdrawing and has positive opioids and marijuana noted on his screen. Patient also has been taking Suboxone outpatient. Patient is presently on propofol and fentanyl drip. We will wean off the fentanyl drip and replace it with Precedex. We will then slowly wean off propofol and remain with Precedex while we wean and hopefully extubate soon. Patient will continue on fluids at 150 an hour. We will continue intubated with an MAS of 2. ppx lovenox total time 80 min
[2020-10-10] MEDS ORDERED: Benzocaine/Cetylpyridinium/Menthol Lozenge MUCMEM PRN (11:39)
[2020-10-10] MEDS ORDERED: Ziprasidone HCl 20 MG Cap PO STA (12:21)
[2020-10-10] MEDS: Enoxaparin 40 MG/0.4 ML Syringe SUBCUT SCH (12:48)
[2020-10-10] MEDS: Nicotine Polacrilex 2 MG Gum CHEW PRN (16:43)
[2020-10-10] MEDS ORDERED: LORazepam 2 MG/ML SDV IVPUSH ONE (18:41)
[2020-10-10] MEDS ORDERED: LORazepam 1 MG Tab PO PRN (19:09)
[2020-10-10] MEDS: LORazepam 2 MG/ML SDV IVPUSH PRN ×3 (19:41→22:28)
[2020-10-11] MEDS: LORazepam 1 MG Tab PO PRN ×3 (01:07→20:02)
[2020-10-11] MEDS: Nicotine Polacrilex 2 MG Gum CHEW PRN ×5 (02:38→19:53)
[2020-10-11] MEDS: Pantoprazole 40 MG Vial IVPUSH SCH (08:25)
[2020-10-11] MEDS: LORazepam 2 MG/ML SDV IVPUSH PRN ×4 (10:44→22:06)
--- NOTE | 2020-10-11 11:20 | PCM.PN ---
- General Info Date of Service: 10/11/20 Admission Dx/Problem (Free Text): polysubstance abuse and withdrawal Subjective Update: states he is too sick to go to rehab. We are noting worse behavior when multiple people in room when he is not getting 100% attention. He is also acting out when he knows he is being seen and acts more uncontrolled with dramatic symptoms only when a RN is in room and he can request meds. He is getting Ativan prn but is otherwise ready for dc when bed available for detox and rehab - Review of Systems General: Reports: No Symptoms HEENT: Reports: No Symptoms Pulmonary: Reports: No Symptoms Cardiovascular: Reports: No Symptoms Gastrointestinal: Reports: No Symptoms Genitourinary: Reports: No Symptoms Musculoskeletal: Reports: No Symptoms Skin: Reports: No Symptoms Neurological: Reports: No Symptoms Psychiatric: Reports: Depression, Mood Lability, Anxiety, Cravings - Patient Data Vitals - Most Recent: Last Vital Signs Temp 98.3 F 10/11/20 08:00 Pulse 104 H 10/11/20 08:00 Resp 18 10/11/20 08:00 BP 130/86 10/11/20 08:00 Pulse Ox 100 10/11/20 08:00 Weight - Most Recent: 134 lb 11.2 oz I&O - Last 24 Hours: Intake & Output 10/10/20 10/11/20 10/11/20 22:59 06:59 14:59 Intake Total 1240 400 Balance 1240 400 Lab Results Last 24 Hours: Laboratory Results - last 24 hr 10/11/20 10/11/20 Range/Units 05:30 05:30 WBC 11.61 H (4.23-9.07) K/mm3 RBC 4.72 (4.63-6.08) M/mm3 Hgb 13.8 (13.7-17.5) gm/dl Hct 40.3 (40.1-51.0) % MCV 85.4 (79.0-92.2) fl MCH 29.2 (25.7-32.2) pg MCHC 34.2 (32.2-35.5) g/dl RDW Std Deviation 38.5 (35.1-43.9) fL Plt Count 306 (163-337) K/mm3 MPV 9.7 (9.4-12.3) fl Neut % (Auto) 70.9 H (34.0-67.9) % Lymph % (Auto) 19.0 L (21.8-53.1) % [place] % (Auto) 9.0 (5.3-12.2) % Eos % (Auto) 0.7 L (0.8-7.0) Baso % (Auto) 0.2 (0.1-1.2) % Neut # (Auto) 8.23 H (1.78-5.38) K/mm3 Lymph # (Auto) 2.21 (1.32-3.57) K/mm3 [place] # (Auto) 1.05 H (0.30-0.82) K/mm3 Eos # (Auto) 0.08 (0.04-0.54) K/mm3 Baso # (Auto) 0.02 (0.01-0.08) K/mm3 Sodium 146 H (136-145) mEq/L Potassium 3.6 (3.5-5.1) mEq/L Chloride 108 H (98-107) mEq/L Carbon Dioxide 27 (21-32) mEq/L Anion Gap 14.6 (5-15) BUN 9 (7-18) mg/dL Creatinine 0.8 (0.7-1.3) mg/dL Est Cr Clr Drug Dosing 125.17 mL/min Estimated GFR (MDRD) > 60 (>60) mL/min BUN/Creatinine Ratio 11.3 L (14-18) Glucose 95 (70-99) mg/dL Calcium 8.6 (8.5-10.1) mg/dL Total Bilirubin 0.8 (0.2-1.0) mg/dL AST 42 H (15-37) U/L ALT 25 (16-63) U/L Alkaline Phosphatase 86 (46-116) U/L Total Protein 6.6 (6.4-8.2) g/dl Albumin 3.6 (3.4-5.0) g/dl Globulin 3.0 gm/dL Albumin/Globulin Ratio 1.2 (1-2) Tin Results Last 24 Hours: Microbiology 10/09/20 12:45 Blood Culture - Preliminary Blood 10/09/20 12:53 Blood Culture - Preliminary Blood Med Orders - Current: Current Medications Acetaminophen (Acetaminophen 650 Mg Supp) 650 mg RECTAL Q4H PRN PRN Reason: Pain (mild 1-3) Benzocaine/Menthol (Benzocaine/Cetylpyridinium/Menthol Lozenge) 1 lozenge MUCMEM QID PRN PRN Reason: Sore Throat Last Admin: 10/10/20 11:48 Dose: 1 lozenge Documented by: Enoxaparin Sodium (Enoxaparin 40 Mg/0.4 Ml Syringe) 40 mg SUBCUT Q24H [facility] Last Admin: 10/10/20 12:48 Dose: 40 mg Documented by: Lorazepam (Lorazepam 2 Mg/Ml Sdv) 1 - 2 mg IVPUSH Q1H PRN; Protocol PRN Reason: Withdrawal Symptoms Last Admin: 10/11/20 10:44 Dose: 2 mg Documented by: Lorazepam (Lorazepam 1 Mg Tab) 1 - 2 mg PO Q1H PRN; Protocol PRN Reason: Withdrawal Symptoms Last Admin: 10/11/20 10:02 Dose: 1 mg Documented by: Nicotine Polacrilex (Nicotine Polacrilex 2 Mg Gum) 2 mg CHEW Q2H PRN PRN Reason: Withdrawal Symptoms Last Admin: 10/11/20 10:02 Dose: 2 mg Documented by: Pantoprazole Sodium (Pantoprazole 40 Mg Vial) 40 mg IVPUSH DAILY [facility] Last Admin: 10/11/20 08:25 Dose: 40 mg Documented by: Discontinued Medications Clonidine HCl (Clonidine 0.1 Mg Tab) 0.1 mg PO ONETIME ONE Stop: 10/08/20 23:16 Last Admin: 10/08/20 23:36 Dose: 0.1 mg Documented by: Etomidate (Etomidate 2 Mg/Ml 20 Ml Sdv) 20 mg IVPUSH ONETIME ONE Stop: 10/09/20 00:49 Last Admin: 10/09/20 00:55 Dose: 20 mg Documented by: Haloperidol Lactate (Haloperidol Lactate 5 Mg/Ml Sdv) 2.5 mg IVPUSH ONETIME ONE Stop: 10/09/20 00:26 Last Admin: 10/09/20 00:27 Dose: 2.5 mg Documented by: Haloperidol Lactate (Haloperidol Lactate 5 Mg/Ml Sdv) Confirm Administered Dose 5 mg .ROUTE .STK-MED ONE Stop: 10/09/20 00:28 Last Admin: 10/09/20 02:35 Dose: Not Given Documented by: Haloperidol Lactate (Haloperidol Lactate 5 Mg/Ml Sdv) 5 mg IVPUSH ONETIME ONE Stop: 10/09/20 00:39 Last Admin: 10/09/20 00:40 Dose: 5 mg Documented by: Dextrose/Lactated Ringer's (Dextrose 5%-Lactated Ringers) 1,000 mls @ 999 mls/hr IV ASDIRECTED [facility] Last Admin: 10/08/20 23:34 Dose: 999 mls/hr Documented by: Promethazine HCl 25 mg/ Sodium (Chloride) 51 mls @ 100 mls/hr IV ONETIME ONE Stop: 10/08/20 23:45 Last Admin: 10/08/20 23:34 Dose: 100 mls/hr Documented by: Propofol (Diprivan 100 Ml) 100 mls @ 1.755 mls/hr IV TITRATE [facility]; Protocol Last Titration: 10/10/20 09:54 Dose: 0 mcg/kg/min, 0 mls/hr Documented by: Sodium Chloride (Normal Saline) 1,000 mls @ 150 mls/hr IV ASDIRECTED [facility] Last Admin: 10/10/20 05:14 Dose: 150 mls/hr Documented by: Fentanyl 2,500 mcg/ Sodium (Chloride) 250 mls @ 87.77 mls/hr IV TITRATE [facility]; Protocol Last Titration: 10/09/20 15:08 Dose: 0 mcg/kg/hr, 0 mls/hr Documented by: dexmedeTOMIDine in dextrose 5% (400 mcg/ Premix) 100 mls @ 5.851 mls/hr IV TITRATE [facility]; Protocol Last Titration: 10/10/20 09:55 Dose: 0 mcg/kg/hr, 0 mls/hr Documented by: Dextrose/Sodium Chloride (Dextrose 5%-Normal Saline) 1,000 mls @ 75 mls/hr IV ASDIRECTED [facility] Last Admin: 10/10/20 07:59 Dose: 75 mls/hr Documented by: Lorazepam (Lorazepam 2 Mg/Ml Sdv) 1 mg IVPUSH ONETIME ONE Stop: 10/08/20 23:16 Last Admin: 10/08/20 23:36 Dose: 1 mg Documented by: Lorazepam (Lorazepam 2 Mg/Ml Sdv) 1 mg IVPUSH ONETIME ONE Stop: 10/09/20 00:11 Last Admin: 10/09/20 00:16 Dose: 1 mg Documented by: Lorazepam (Lorazepam 2 Mg/Ml Sdv) Confirm Administered Dose 2 mg .ROUTE .STK-MED ONE Stop: 10/09/20 00:34 Last Admin: 10/09/20 02:35 Dose: Not Given Documented by: Lorazepam (Lorazepam 2 Mg/Ml Sdv) 2 mg IVPUSH ONETIME ONE Stop: 10/10/20 18:42 Last Admin: 10/10/20 18:48 Dose: 2 mg Documented by: Lorazepam (Lorazepam 2 Mg/Ml Sdv) 2 mg IVPUSH Q1H PRN; Protocol PRN Reason: Withdrawal Symptoms Last Admin: 10/10/20 21:15 Dose: 2 mg Documented by: Lorazepam (Lorazepam 1 Mg Tab) 1 mg PO Q1H PRN; Protocol PRN Reason: Withdrawal Symptoms Midazolam HCl (Midazolam 5 Mg/Ml 10 Ml Mdv) 4 mg IV ONETIME ONE Stop: 10/09/20 02:15 Last Admin: 10/09/20 03:14 Dose: Not Given Documented by: Midazolam HCl (Midazolam 1 Mg/Ml 2 Ml Sdv) Confirm Administered Dose 4 mg .ROUTE .STK-MED ONE Stop: 10/09/20 02:17 Last Admin: 10/09/20 02:36 Dose: Not Given Documented by: Midazolam HCl (Midazolam 1 Mg/Ml 2 Ml Sdv) 4 mg IVPUSH ONETIME ONE Stop: 10/09/20 03:13 Last Admin: 10/09/20 02:15 Dose: 4 mg Documented by: Ondansetron HCl (Ondansetron 4 Mg/2 Ml Sdv) 4 mg IVPUSH ONETIME ONE Stop: 10/10/20 04:36 Last Admin: 10/10/20 04:47 Dose: 4 mg Documented by: Propofol (Propofol 200 Mg/20 Ml Sdv) 90 mg IVPUSH ONETIME ONE Stop: 10/09/20 00:50 Last Admin: 10/09/20 01:00 Dose: 90 mg Documented by: Rocuronium [place] (Rocuronium 50 Mg/5 Ml Vial) 35 mg 0.6 mg/kg (35 mg) IVPUSH NOW ONE Stop: 10/09/20 01:13 Last Admin: 10/09/20 01:13 Dose: 35 mg Documented by: Rocuronium [place] (Rocuronium 50 Mg/5 Ml Vial) Confirm Administered Dose 50 mg .ROUTE .STK-MED ONE Stop: 10/09/20 01:14 Last Admin: 10/09/20 02:37 Dose: Not Given Documented by: Rocuronium [place] (Rocuronium 50 Mg/5 Ml Vial) 35 mg IVPUSH ONETIME ONE Stop: 10/09/20 03:14 Last Admin: 10/09/20 03:10 Dose: 35 mg Documented by: Succinylcholine Chloride (Succinylcholine 200 Mg/10 Ml Mdv) 90 mg IV ONETIME ONE Stop: 10/09/20 00:49 Last Admin: 10/09/20 00:51 Dose: 90 mg Documented by: Vecuronium [place] (Vecuronium 10 Mg Vial) 6 mg 0.1 mg/kg (6 mg) IVPUSH ONETIME ONE Stop: 10/09/20 01:41 Last Admin: 10/09/20 01:40 Dose: 6 mg Documented by: Vecuronium [place] (Vecuronium 10 Mg Vial) Confirm Administered Dose 10 mg .ROUTE .STK-MED ONE Stop: 10/09/20 01:42 Last Admin: 10/09/20 02:35 Dose: Not Given Documented by: Ziprasidone (Ziprasidone Hcl 20 Mg Cap) 20 mg PO NOW STA Stop: 10/10/20 12:22 Last Admin: 10/10/20 12:47 Dose: 20 mg Documented by: - Exam Urinary Catheter Total Time: 1Days 10Hours General: Alert, Oriented HEENT: Pupils Equal, Pupils Reactive Neck: Supple Lungs: Clear to Auscultation, Normal Respiratory Effort Cardiovascular: Regular Rate, Regular Rhythm GI/Abdominal Exam: Normal Bowel Sounds, Soft, Non-Tender, No Organomegaly Back Exam: Normal Inspection, Full Range of Motion Extremities: Normal Inspection, Normal Range of Motion, Non-Tender Skin: Warm, Dry Wound/Incisions: Healing Well Neurological: No New Focal Deficit Psy/Mental Status: Alert, Labile Mood, Anxious, Depressed, Agitated, Other (stated he is too sick and needs his vape. we are concerned it is more than vape products inthe unit. ) - Patient Data Lab Results Last 24 hrs: Laboratory Results - last 24 hr 10/11/20 10/11/20 Range/Units 05:30 05:30 WBC 11.61 H (4.23-9.07) K/mm3 RBC 4.72 (4.63-6.08) M/mm3 Hgb 13.8 (13.7-17.5) gm/dl Hct 40.3 (40.1-51.0) % MCV 85.4 (79.0-92.2) fl MCH 29.2 (25.7-32.2) pg MCHC 34.2 (32.2-35.5) g/dl RDW Std Deviation 38.5 (35.1-43.9) fL Plt Count 306 (163-337) K/mm3 MPV 9.7 (9.4-12.3) fl Neut % (Auto) 70.9 H (34.0-67.9) % Lymph % (Auto) 19.0 L (21.8-53.1) % [place] % (Auto) 9.0 (5.3-12.2) % Eos % (Auto) 0.7 L (0.8-7.0) Baso % (Auto) 0.2 (0.1-1.2) % Neut # (Auto) 8.23 H (1.78-5.38) K/mm3 Lymph # (Auto) 2.21 (1.32-3.57) K/mm3 [place] # (Auto) 1.05 H (0.30-0.82) K/mm3 Eos # (Auto) 0.08 (0.04-0.54) K/mm3 Baso # (Auto) 0.02 (0.01-0.08) K/mm3 Sodium 146 H (136-145) mEq/L Potassium 3.6 (3.5-5.1) mEq/L Chloride 108 H (98-107) mEq/L Carbon Dioxide 27 (21-32) mEq/L Anion Gap 14.6 (5-15) BUN 9 (7-18) mg/dL Creatinine 0.8 (0.7-1.3) mg/dL Est Cr Clr Drug Dosing 125.17 mL/min Estimated GFR (MDRD) > 60 (>60) mL/min BUN/Creatinine Ratio 11.3 L (14-18) Glucose 95 (70-99) mg/dL Calcium 8.6 (8.5-10.1) mg/dL Total Bilirubin 0.8 (0.2-1.0) mg/dL AST 42 H (15-37) U/L ALT 25 (16-63) U/L Alkaline Phosphatase 86 (46-116) U/L Total Protein 6.6 (6.4-8.2) g/dl Albumin 3.6 (3.4-5.0) g/dl Globulin 3.0 gm/dL Albumin/Globulin Ratio 1.2 (1-2) Result Diagrams: 10/11/20 05:30 10/11/20 05:30 Tin Results Last 24 hrs: Microbiology 10/09/20 12:45 Blood Culture - Preliminary Blood 10/09/20 12:53 Blood Culture - Preliminary Blood Sepsis Event Note - Evaluation Sepsis Screening Result: No Definite Risk - Focused Exam Vital Signs: Vital Signs Temp Pulse Resp BP Pulse Ox 10/11/20 08:00 98.3 F 104 H 18 130/86 100 10/11/20 04:00 98.2 F 14 121/65 99 10/11/20 00:00 98.8 F 16 117/73 97 - Problem List Review Problem List Initiated/Reviewed/Updated: Yes - My Orders Last 24 Hours: My Active Orders 10/10/20 11:39 Benzocaine/Cetylpyrd/Menthol [Cepacol Sore Throat] 1 lozenge MUCMEM QID PRN 10/10/20 16:00 Initiate/Renew Non-Violent Restraints (All Ages) Q24H 10/10/20 16:27 Nicotine Polacrilex [Nicorelief] 2 mg CHEW Q2H PRN 10/10/20 Dinner Regular Diet [DIET] 10/10/20 22:14 LORazepam [Ativan] 1 - 2 mg IVPUSH Q1H PRN LORazepam [Ativan] 1 - 2 mg PO Q1H PRN 10/12/20 05:11 CBC WITH AUTO DIFF [HEME] AM COMPREHENSIVE METABOLIC PN,CMP [CHEM] AM 10/13/20 05:11 CBC WITH AUTO DIFF [HEME] AM COMPREHENSIVE METABOLIC PN,CMP [CHEM] AM - Assessment Assessment:: 1. Substance abuse/withdrawal- 10/09/20 patient had nausea vomiting, aggressiveness, and not protecting airway. Patient is obviously withdrawing and has positive opioids and marijuana noted on his screen. Patient also has been taking Suboxone outpatient. Patient is presently on propofol and fentanyl drip. We will wean off the fentanyl drip and replace it with Precedex. We will then slowly wean off propofol and remain with Precedex while we wean and hopefully extubate soon. Patient will continue on fluids at 150 an hour. We will continue intubated with an MAS of 2. 10/10/20 patient had propofol and Precedex stopped and patient has been extubated and ng removed. next will be remove the [facility] and eval for possible need for antipsychotics, antidepressants.no suicidal ideation is noted. we will discuss further the need for placement in 30 day program 10/11 overnight became aggressive, tremors, muscle ridged, tachycardia during episodes, sleeping when not being watches with good vitals, behavior issues when more than one person in the room or is he wants meds like Ativan but when alone or with a nurse who can not prescribe he behaves more appropriate and does not have tremors and muscle ridged. he is asking for hot shower and states he is hot and cold. I am assuming there is some element of slow ongoing withdrawal from one of the substances. What i am seeing is mostly psychiatric mood labile symptoms, a strong desire to leave or call friends r to get the vape unit. We are concerned the vape unit is used for illicit drugs. Even if i checked the unit i am not sre if i would know, we may need to find out before giving this back to him before discharge. Likely will dc to rehab tomorrow, medically he is clear ppx Lovenox time 36 min - Plan Plan:: 1. Substance abuse/withdrawal- 10/09/20 patient had nausea vomiting, aggressiveness, and not protecting airway. Patient is obviously withdrawing and has positive opioids and marijuana noted on his screen. Patient also has been taking Suboxone outpatient. Patient is presently on propofol and fentanyl drip. We will wean off the fentanyl drip and replace it with Precedex. We will then slowly wean off propofol and remain with Precedex while we wean and hopefully extubate soon. Patient will continue on fluids at 150 an hour. We will continue intubated with an MAS of 2. ppx lovenox total time 80 min
[2020-10-11] MEDS: Enoxaparin 40 MG/0.4 ML Syringe SUBCUT SCH (12:40)
[2020-10-12] MEDS: LORazepam 1 MG Tab PO PRN (03:22)
[2020-10-12] MEDS: Nicotine Polacrilex 2 MG Gum CHEW PRN (03:45)
[2020-10-12] MEDS: LORazepam 2 MG/ML SDV IVPUSH PRN (04:36)
--- NOTE | 2020-10-12 06:45 | PCM.DCSUM1 ---
Discharge Summary - Hospital Course Free Text/Narrative:: 1. Substance abuse/withdrawal- 10/09/20 patient had nausea vomiting, aggressiveness, and not protecting airway. Patient is obviously withdrawing and has positive opioids and marijuana noted on his screen. Patient also has been taking Suboxone outpatient. Patient is presently on propofol and fentanyl drip. We will wean off the fentanyl drip and replace it with Precedex. We will then slowly wean off propofol and remain with Precedex while we wean and hopefully extubate soon. Patient will continue on fluids at 150 an hour. We will continue intubated with an MAS of 2. 10/10/20 patient had propofol and Precedex stopped and patient has been extubated and ng removed. next will be remove the [facility] and eval for possible need for antipsychotics, antidepressants.no suicidal ideation is noted. we will discuss further the need for placement in 30 day program 10/11 overnight became aggressive, tremors, muscle ridged, tachycardia during episodes, sleeping when not being watches with good vitals, behavior issues when more than one person in the room or is he wants meds like Ativan but when alone or with a nurse who can not prescribe he behaves more appropriate and does not have tremors and muscle ridged. he is asking for hot shower and states he is hot and cold. I am assuming there is some element of slow ongoing withdrawal from one of the substances. What i am seeing is mostly psychiatric mood labile symptoms, a strong desire to leave or call friends r to get the vape unit. We are concerned the vape unit is used for illicit drugs. Even if i checked the unit i am not sre if i would know, we may need to find out before giving this back to him before discharge. 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 presents to the er with hallucinations after taking suboxone and illicit drugs and now asking for assistance with rehab - Discharge Data Discharge Date: 10/12/20 Discharge Disposition: Home, Self-Care 01 Condition: Good - Referral to Home Health Primary Care Physician: PCP None - Patient Instructions Diet: Regular Diet as Tolerated Activity: As Tolerated Driving: May Drive Today Showering/Bathing: May Shower Notify Provider of: Nausea and/or Vomiting Other/Special Instructions: follow up with rehab on thursday, return to er with return of symptoms - Discharge Plan *PRESCRIPTION DRUG MONITORING PROGRAM REVIEWED*: Not Applicable *COPY OF PRESCRIPTION DRUG MONITORING REPORT IN PATIENT SARTHAK: Not Applicable Prescriptions/Med Rec: ARIPiprazole [Abilify] 5 mg PO DAILY #5 tab clonazePAM [Klonopin] 1 mg PO BID PRN 5 Days #10 tablet PRN Reason: Anxiety Home Medications: Home Meds ARIPiprazole [Abilify] 5 mg PO DAILY #5 tab 10/12/20 [Rx] clonazePAM [Klonopin] 1 mg PO BID PRN 5 Days #10 tablet 10/12/20 [Rx] Oxygen Therapy Mode: Room Air Patient Handouts: Electronic Cigarette Information Forms: ED Department Discharge Referrals: PCP,None [Primary Care Provider] - - Discharge Summary/Plan Comment DC Time >30 min.: Yes Total # of Minutes for Discharge Time: 36min - Patient Data Vitals - Most Recent: Last Vital Signs Temp 97.5 F 10/12/20 04:00 Pulse 75 10/12/20 04:00 Resp 19 10/12/20 04:00 BP 125/74 10/12/20 04:00 Pulse Ox 94 L 10/12/20 04:00 Weight - Most Recent: 122 lb I&O - Last 24 hours: Intake & Output 10/11/20 10/11/20 10/12/20 14:59 22:59 06:59 Intake Total 240 Output Total 702 650 Balance -462 -650 Lab Results - Last 24 hrs: Laboratory Results - last 24 hr 10/12/20 Range/Units 05:25 WBC 8.77 (4.23-9.07) K/mm3 RBC 4.88 (4.63-6.08) M/mm3 Hgb 14.1 (13.7-17.5) gm/dl Hct 41.2 (40.1-51.0) % MCV 84.4 (79.0-92.2) fl MCH 28.9 (25.7-32.2) pg MCHC 34.2 (32.2-35.5) g/dl RDW Std Deviation 38.8 (35.1-43.9) fL Plt Count 362 H (163-337) K/mm3 MPV 9.7 (9.4-12.3) fl Neut % (Auto) 74.8 H (34.0-67.9) % Lymph % (Auto) 16.2 L (21.8-53.1) % [place] % (Auto) 7.8 (5.3-12.2) % Eos % (Auto) 0.9 (0.8-7.0) Baso % (Auto) 0.2 (0.1-1.2) % Neut # (Auto) 6.56 H (1.78-5.38) K/mm3 Lymph # (Auto) 1.42 (1.32-3.57) K/mm3 [place] # (Auto) 0.68 (0.30-0.82) K/mm3 Eos # (Auto) 0.08 (0.04-0.54) K/mm3 Baso # (Auto) 0.02 (0.01-0.08) K/mm3 Med Orders - Current: Current Medications Acetaminophen (Acetaminophen 650 Mg Supp) 650 mg RECTAL Q4H PRN PRN Reason: Pain (mild 1-3) Benzocaine/Menthol (Benzocaine/Cetylpyridinium/Menthol Lozenge) 1 lozenge MUCMEM QID PRN PRN Reason: Sore Throat Last Admin: 10/10/20 11:48 Dose: 1 lozenge Documented by: Enoxaparin Sodium (Enoxaparin 40 Mg/0.4 Ml Syringe) 40 mg SUBCUT Q24H [facility] Last Admin: 10/11/20 12:40 Dose: 40 mg Documented by: Lorazepam (Lorazepam 2 Mg/Ml Sdv) 1 - 2 mg IVPUSH Q1H PRN; Protocol PRN Reason: Withdrawal Symptoms Last Admin: 10/12/20 04:36 Dose: 1 mg Documented by: Lorazepam (Lorazepam 1 Mg Tab) 1 - 2 mg PO Q1H PRN; Protocol PRN Reason: Withdrawal Symptoms Last Admin: 10/12/20 03:22 Dose: 1 mg Documented by: Nicotine Polacrilex (Nicotine Polacrilex 2 Mg Gum) 2 mg CHEW Q2H PRN PRN Reason: Withdrawal Symptoms Last Admin: 10/12/20 03:45 Dose: 2 mg Documented by: Pantoprazole Sodium (Pantoprazole 40 Mg Vial) 40 mg IVPUSH DAILY [facility] Last Admin: 10/11/20 08:25 Dose: 40 mg Documented by: Discontinued Medications Clonidine HCl (Clonidine 0.1 Mg Tab) 0.1 mg PO ONETIME ONE Stop: 10/08/20 23:16 Last Admin: 10/08/20 23:36 Dose: 0.1 mg Documented by: Etomidate (Etomidate 2 Mg/Ml 20 Ml Sdv) 20 mg IVPUSH ONETIME ONE Stop: 10/09/20 00:49 Last Admin: 10/09/20 00:55 Dose: 20 mg Documented by: Haloperidol Lactate (Haloperidol Lactate 5 Mg/Ml Sdv) 2.5 mg IVPUSH ONETIME ONE Stop: 10/09/20 00:26 Last Admin: 10/09/20 00:27 Dose: 2.5 mg Documented by: Haloperidol Lactate (Haloperidol Lactate 5 Mg/Ml Sdv) Confirm Administered Dose 5 mg .ROUTE .STK-MED ONE Stop: 10/09/20 00:28 Last Admin: 10/09/20 02:35 Dose: Not Given Documented by: Haloperidol Lactate (Haloperidol Lactate 5 Mg/Ml Sdv) 5 mg IVPUSH ONETIME ONE Stop: 10/09/20 00:39 Last Admin: 10/09/20 00:40 Dose: 5 mg Documented by: Dextrose/Lactated Ringer's (Dextrose 5%-Lactated Ringers) 1,000 mls @ 999 mls/hr IV ASDIRECTED [facility] Last Admin: 10/08/20 23:34 Dose: 999 mls/hr Documented by: Promethazine HCl 25 mg/ Sodium (Chloride) 51 mls @ 100 mls/hr IV ONETIME ONE Stop: 10/08/20 23:45 Last Admin: 10/08/20 23:34 Dose: 100 mls/hr Documented by: Propofol (Diprivan 100 Ml) 100 mls @ 1.755 mls/hr IV TITRATE [facility]; Protocol Last Titration: 10/10/20 09:54 Dose: 0 mcg/kg/min, 0 mls/hr Documented by: Sodium Chloride (Normal Saline) 1,000 mls @ 150 mls/hr IV ASDIRECTED [facility] Last Admin: 10/10/20 05:14 Dose: 150 mls/hr Documented by: Fentanyl 2,500 mcg/ Sodium (Chloride) 250 mls @ 87.77 mls/hr IV TITRATE [facility]; Protocol Last Titration: 10/09/20 15:08 Dose: 0 mcg/kg/hr, 0 mls/hr Documented by: dexmedeTOMIDine in dextrose 5% (400 mcg/ Premix) 100 mls @ 5.851 mls/hr IV TITRATE [facility]; Protocol Last Titration: 10/10/20 09:55 Dose: 0 mcg/kg/hr, 0 mls/hr Documented by: Dextrose/Sodium Chloride (Dextrose 5%-Normal Saline) 1,000 mls @ 75 mls/hr IV ASDIRECTED [facility] Last Admin: 10/10/20 07:59 Dose: 75 mls/hr Documented by: Lorazepam (Lorazepam 2 Mg/Ml Sdv) 1 mg IVPUSH ONETIME ONE Stop: 10/08/20 23:16 Last Admin: 10/08/20 23:36 Dose: 1 mg Documented by: Lorazepam (Lorazepam 2 Mg/Ml Sdv) 1 mg IVPUSH ONETIME ONE Stop: 10/09/20 00:11 Last Admin: 10/09/20 00:16 Dose: 1 mg Documented by: Lorazepam (Lorazepam 2 Mg/Ml Sdv) Confirm Administered Dose 2 mg .ROUTE .STK-MED ONE Stop: 10/09/20 00:34 Last Admin: 10/09/20 02:35 Dose: Not Given Documented by: Lorazepam (Lorazepam 2 Mg/Ml Sdv) 2 mg IVPUSH ONETIME ONE Stop: 10/10/20 18:42 Last Admin: 10/10/20 18:48 Dose: 2 mg Documented by: Lorazepam (Lorazepam 2 Mg/Ml Sdv) 2 mg IVPUSH Q1H PRN; Protocol PRN Reason: Withdrawal Symptoms Last Admin: 10/10/20 21:15 Dose: 2 mg Documented by: Lorazepam (Lorazepam 1 Mg Tab) 1 mg PO Q1H PRN; Protocol PRN Reason: Withdrawal Symptoms Midazolam HCl (Midazolam 5 Mg/Ml 10 Ml Mdv) 4 mg IV ONETIME ONE Stop: 10/09/20 02:15 Last Admin: 10/09/20 03:14 Dose: Not Given Documented by: Midazolam HCl (Midazolam 1 Mg/Ml 2 Ml Sdv) Confirm Administered Dose 4 mg .ROUTE .STK-MED ONE Stop: 10/09/20 02:17 Last Admin: 10/09/20 02:36 Dose: Not Given Documented by: Midazolam HCl (Midazolam 1 Mg/Ml 2 Ml Sdv) 4 mg IVPUSH ONETIME ONE Stop: 10/09/20 03:13 Last Admin: 10/09/20 02:15 Dose: 4 mg Documented by: Ondansetron HCl (Ondansetron 4 Mg/2 Ml Sdv) 4 mg IVPUSH ONETIME ONE Stop: 10/10/20 04:36 Last Admin: 10/10/20 04:47 Dose: 4 mg Documented by: Propofol (Propofol 200 Mg/20 Ml Sdv) 90 mg IVPUSH ONETIME ONE Stop: 10/09/20 00:50 Last Admin: 10/09/20 01:00 Dose: 90 mg Documented by: Rocuronium Poth (Rocuronium 50 Mg/5 Ml Vial) 35 mg 0.6 mg/kg (35 mg) IVPUSH NOW ONE Stop: 10/09/20 01:13 Last Admin: 10/09/20 01:13 Dose: 35 mg Documented by: Rocuronium Poth (Rocuronium 50 Mg/5 Ml Vial) Confirm Administered Dose 50 mg .ROUTE .STK-MED ONE Stop: 10/09/20 01:14 Last Admin: 10/09/20 02:37 Dose: Not Given Documented by: Rocuronium Poth (Rocuronium 50 Mg/5 Ml Vial) 35 mg IVPUSH ONETIME ONE Stop: 10/09/20 03:14 Last Admin: 10/09/20 03:10 Dose: 35 mg Documented by: Succinylcholine Chloride (Succinylcholine 200 Mg/10 Ml Mdv) 90 mg IV ONETIME ONE Stop: 10/09/20 00:49 Last Admin: 10/09/20 00:51 Dose: 90 mg Documented by: Vecuronium Poth (Vecuronium 10 Mg Vial) 6 mg 0.1 mg/kg (6 mg) IVPUSH ONETIME ONE Stop: 10/09/20 01:41 Last Admin: 10/09/20 01:40 Dose: 6 mg Documented by: Vecuronium Poth (Vecuronium 10 Mg Vial) Confirm Administered Dose 10 mg .ROUTE .STK-MED ONE Stop: 10/09/20 01:42 Last Admin: 10/09/20 02:35 Dose: Not Given Documented by: Ziprasidone (Ziprasidone Hcl 20 Mg Cap) 20 mg PO NOW STA Stop: 10/10/20 12:22 Last Admin: 10/10/20 12:47 Dose: 20 mg Documented by: Discharge Operative/Procedures - Procedures Performed Intubation Indication: Airway Protection, Other (Extreme uncontrolled behavior)
== END 2020-10-12 07:30 | disposition home or self-care (01) | DRG 773 ==
LOC: JD.ED 22:12 → JD.ICU 10-09 10:00
PROVIDERS: ADMIT Internal Medicine; ATTEND Internal Medicine
DX: F11.13 Opioid abuse with withdrawal (principal); Z79.899 Other long term (current) drug therapy; F17.210 Nicotine dependence, cigarettes, uncomplicated; F41.9 Anxiety disorder, unspecified; F32.9 Major depressive disorder, single episode, unspecified; F19.10 Other psychoactive substance abuse, uncomplicated; Z20.822 Contact with and (suspected) exposure to COVID-19
CPT/HCPCS: 31500; 36415; 36600; 43752; 51702; 80053; 80143; 80179; 80306; 80307; 81001; 82803; 83735; 84484; 85025; 86140; 86803; 87040; 93005; 93010; 94003; 96365; 96375; 96376; 99285-25; 99291; 99292; A9270-GY; C9113; G0433; J0330; J1630; J1650; J2060; J2250; J2405; J2550; J2704; J3010; J3490; J7030; J7042; J7050; J7121; U0002